=== PATIENT | female | born 1940 | race African-American/Black ===

== ENCOUNTER 2018-03-24 11:27 | Inpatient (IN) | payer OTHER ==
[~2018-03-24] VITALS: Ht 165.1 cm; Wt 78.5 kg
[~2018-03-24 11:27] MED LIST: ATOR20TA65 MT; BUDE6HFA INH; ESCI20TA36 PO; FOLI-43 PO; LOSA25TA12 PO; POTA10TA15 PO; TRAZ-212 PO
[2018-03-24] MEDS ORDERED: METHYLPREDNISOLONE SOD SUCC 125 MG/2 ML VIAL IV STA (12:27)
[2018-03-24] MEDS ORDERED: MAGNESIUM 2 G PREMIX 50 ML IV ONE (12:30)
[2018-03-24] MEDS ORDERED: IPRATROPIUM/ALBUTEROL 0.5-3(2.5)MG/3ML NEB HHN ONE (12:30)
[2018-03-24 13:58] LABS: BASOPHILS % 0.8 % (0.0-2.0); EOSINOPHILS % 1.3 % (0.0-5.0); HEMATOCRIT. 37.2 % (36.0-48.0); HEMOGLOBIN. 11.8 g/dL (12.0-16.0); LYMPHOCYTES % 23.5 % (20.0-50.0); MEAN CORPUSCULAR HEMOGLOBIN 26.5 pg (28.0-32.0); MEAN CORPUSCULAR VOLUME 83.9 fL (81.0-99.0); MONOCYTES % 11.6 % (2.0-8.0); NEUTROPHILS % 62.8 % (40.0-76.0); PLATELET 239 x1000/uL (130-400); RED BLOOD CELL COUNT 4.44 mill/uL (4.2-5.4)
[2018-03-24 14:03] LABS: CHLORIDE 107 mEq/L (98-107)
[2018-03-24] MEDS ORDERED: FUROSEMIDE 40MG/4ML VIAL IVP ONE (14:30)
[2018-03-24] MEDS ORDERED: ENOXAPARIN 80MG/0.8ML SYR SUBCUT ONE ×2 (14:30→16:00)
[2018-03-24] MEDS ORDERED: ASPIRIN 81MG TABLET PO ONE (14:30)
[2018-03-24 15:05] LABS: INR 1.1; PROTHROMBIN TIME 11.1 sec (9.1-11.1)
[2018-03-24] MEDS ORDERED: MEDICATION NOT ON FORMULARY EA (Trazodone Hcl 1 TAB) PO PRN (17:00)
[2018-03-24] MEDS ORDERED: DIPHENHYDRAMINE 50MG/ML VIAL IV PRN (17:00)
[2018-03-24] MEDS ORDERED: CLONIDINE 0.1MG TABLET PO PRN (17:00)
[2018-03-24] MEDS ORDERED: ACETAMINOPHEN 325MG TABLET PO PRN (17:00)
[2018-03-24] MEDS ORDERED: HYDROCODONE/ACETAMINOPHEN 5/325MG TABLET PO PRN (17:00)
[2018-03-24] MEDS ORDERED: GUAIFENESIN 200MG/10ML SUGAR FREE UDC PO PRN (17:00)
[2018-03-24] MEDS ORDERED: DOCUSATE SODIUM 100MG CAPSULE PO PRN (17:00)
[2018-03-24] MEDS ORDERED: ACETAMINOPHEN 650MG SUPP PR PRN (17:00)
[2018-03-24] MEDS ORDERED: MAGNESIUM/ALUMINUM HYDROXIDE/SIMETHICONE 30ML UDC PO PRN (17:00)
[2018-03-24] MEDS ORDERED: ONDANSETRON HCL 4MG/2ML INJ IV PRN (17:00)
[2018-03-24] MEDS ORDERED: IPRATROPIUM/ALBUTEROL 0.5-3(2.5)MG/3ML NEB INH PRN (17:00)
[2018-03-24] MEDS: LORAZEPAM 0.5MG TABLET PO PRN (18:06)
[2018-03-24 18:48] LABS: CLARITY URINE CLEAR (CLEAR); COLOR URINE YELLOW (YELLOW); KETONES URINE NEGATIVE (NEGATIVE); LEUKOCYTE ESTERASE URINE NEGATIVE (NEGATIVE); NITRITE URINE NEGATIVE (NEGATIVE); OCCULT BLOOD URINE NEGATIVE (NEGATIVE); PH URINE 7.5 (4.5-8.0); PROTEIN URINE NEGATIVE (NEGATIVE); SPECIFIC GRAVITY URINE 1.005 (1.005-1.030); UROBILINOGEN URINE 0.2 E.U./dL (0.2-1.0)
[2018-03-24 18:58] LABS: *AMPHETAMINES SCREEN URINE NEGATIVE (NEGATIVE); *BARBITURATES SCREEN URINE NEGATIVE (NEGATIVE); *BENZODIAZEPINES SCREEN URINE NEGATIVE (NEGATIVE); *COCAINE SCREEN URINE NEGATIVE (NEGATIVE); METHADONE URINE SCREEN NEGATIVE (NEGATIVE); OPIATES URINE SCREEN NEGATIVE (NEGATIVE)
[2018-03-24 18:59] LABS: CANNABINOID URINE SCREEN NEGATIVE (NEGATIVE); PHENCYCLIDINE URINE SCREEN NEGATIVE (NEGATIVE)
[2018-03-24 20:00] VITALS: BP_SYST 102; BP_DIAS 70; BP_DIAS 72
[2018-03-24] MEDS ORDERED: NA PHOS,M-B/NA PHOS,DI-BA ENEMA 118ML PR PRN (21:00)
[2018-03-24 22:00] VITALS: BP 110/65
[2018-03-24] MEDS ORDERED: LEVOFLOXACIN 500MG PREMIX 100 ML IV SCH (22:00)
[2018-03-24] MEDS: TRAMADOL 50MG TABLET PO PRN (22:13)
[2018-03-24] MEDS: SILDENAFIL CITRATE 20MG TABLET PO SCH (22:13)
[2018-03-24] MEDS: METHYLPREDNISOLONE SOD SUCC 40 MG/ML VIAL IV SCH (22:13)
[2018-03-24] MEDS: TRAZODONE HCL 50MG TABLET PO PRN (22:14)
[2018-03-24 23:43] LABS: CREATINE KINASE MB FRACTION 4.2 ng/mL (0.5-3.6)
[2018-03-25] VITALS (15 sets, daily range): BP systolic 77–136; BP diastolic 35–83
[2018-03-25] MEDS ORDERED: IPRATROPIUM/ALBUTEROL 0.5-3(2.5)MG/3ML NEB HHN SCH
[2018-03-25] MEDS: IPRATROPIUM/ALBUTEROL 0.5-3(2.5)MG/3ML NEB HHN SCH ×4 (01:39→20:34)
[2018-03-25] MEDS: BUDESONIDE 0.5MG/2ML NEB HHN SCH ×2 (06:00→20:35)
[2018-03-25] MEDS: METHYLPREDNISOLONE SOD SUCC 40 MG/ML VIAL IV SCH ×3 (07:01→23:16)
[2018-03-25] MEDS: SILDENAFIL CITRATE 20MG TABLET PO SCH (07:01)
[2018-03-25] MEDS: TRAMADOL 50MG TABLET PO PRN (07:12)
[2018-03-25 07:44] LABS: BASOPHILS % 0.2 % (0.0-2.0); HEMATOCRIT. 35.5 % (36.0-48.0); HEMOGLOBIN. 11.6 g/dL (12.0-16.0); LYMPHOCYTES % 9.7 % (20.0-50.0); MEAN CORPUSCULAR HEMOGLOBIN 26.7 pg (28.0-32.0); MEAN PLATELET VOLUME 8.8 fl (7.4-10.4); MONOCYTES % 2.7 % (2.0-8.0); NEUTROPHILS % 87.4 % (40.0-76.0); PLATELET 235 x1000/uL (130-400); RED BLOOD CELL COUNT 4.33 mill/uL (4.2-5.4); RED CELL DISTRIBUTION WIDTH 15.8 % (11.6-14.6)
[2018-03-25 08:09] LABS: CHLORIDE 103 mEq/L (98-107)
[2018-03-25 08:18] LABS: CREATINE KINASE MB FRACTION 3.1 ng/mL (0.5-3.6); HDL CHOLESTEROL 70 mg/dL (40-59)
[2018-03-25 08:19] LABS: T4 FREE 1.13 ng/dL (0.76-1.46)
[2018-03-25] MEDS ORDERED: MEDICATION NOT ON FORMULARY EA (Escitalopram Oxalate 1 TAB) PO SCH (09:00)
[2018-03-25] MEDS ORDERED: MEDICATION NOT ON FORMULARY EA (Losartan Potassium 1 TAB) PO SCH (09:00)
[2018-03-25] MEDS ORDERED: FUROSEMIDE 40MG/4ML VIAL IVP SCH (09:00)
[2018-03-25] MEDS ORDERED: MEDICATION NOT ON FORMULARY EA (Folic Acid 1 TAB) PO SCH (09:00)
[2018-03-25] MEDS ORDERED: LOSARTAN POTASSIUM 25 MG TABLET PO SCH (09:00)
[2018-03-25] MEDS ORDERED: RANO500T3 MT (09:54)
[2018-03-25] MEDS: ATORVASTATIN CALCIUM 20MG TABLET PO SCH (10:22)
[2018-03-25] MEDS: FOLIC ACID 1MG TABLET PO SCH (10:22)
[2018-03-25] MEDS: ASPIRIN 81MG EC TABLET PO SCH (10:23)
[2018-03-25] MEDS: LORAZEPAM 0.5MG TABLET PO PRN ×2 (10:24→23:38)
[2018-03-25] MEDS: ENOXAPARIN 40MG/0.4ML SYR SUBCUT SCH (10:24)
[2018-03-25] MEDS: CITALOPRAM HYDROBROMIDE 40MG TABLET PO SCH (10:25)
[2018-03-25 10:45] LABS: LDL CHOLESTEROL 75 mg/dL (5-100)
[2018-03-25 14:46] LABS: BG BASE EXCESS 4.6 mmol/L (-2.0-2.0); BG CARBOXYHEMOGLOBIN 0.7 % (0.5-1.5); BG DEOXYHEMOGLOBIN 4.3 % (0.0-5.0); BG FRACTION INSPIRED OXYGEN 28; BG HCO3 ACT 29.9 mmol/L (22.0-26.0); BG METHEMOGLOBIN 0.1 % (0.0-1.5); BG OXYGEN SATURATION 95.7 % (92.0-98.5); BG OXYHEMOGLOBIN 94.9 % (94.0-97.0); BG PCO2 46.9 mmHg (35.0-45.0); BG PH 7.422 (7.350-7.450); BG PO2 80.9 mmHg (75.0-100.0); BG SAMPLE SITE LEFT BRACHIAL; BG TOTAL HEMOGLOBIN 12.7 g/dL (12.0-18.0); BG VENT MODE NASAL CANNULA
[2018-03-25] MEDS: [UNRECOGNIZED DRUG - OTHER] PO SCH (21:12)
[2018-03-25] MEDS: METRONIDAZOLE 500 MG PREMIX 100 ML IV SCH (21:12)
[2018-03-25] MEDS: LEVOFLOXACIN 250MG PREMIX 50 ML IV SCH (23:16)
[2018-03-26] VITALS (14 sets, daily range): BP systolic 95–138; BP diastolic 51–86
[2018-03-26] MEDS: IPRATROPIUM/ALBUTEROL 0.5-3(2.5)MG/3ML NEB HHN SCH ×7 (00:07→23:38)
[2018-03-26] MEDS: METRONIDAZOLE 500 MG PREMIX 100 ML IV SCH ×3 (04:35→20:53)
[2018-03-26] MEDS: TRAMADOL 50MG TABLET PO PRN (04:35)
[2018-03-26] MEDS: METHYLPREDNISOLONE SOD SUCC 40 MG/ML VIAL IV SCH ×3 (05:28→22:11)
[2018-03-26] MEDS ORDERED: MORPHINE SULFATE 4 MG/ML CPJ (NOT FOR IM USE) IV PRN (08:00)
[2018-03-26 08:05] LABS: HEMATOCRIT. 35.3 % (36.0-48.0); HEMOGLOBIN. 11.2 g/dL (12.0-16.0); MEAN CORPUSCULAR HEMOGLOBIN 26.4 pg (28.0-32.0); MEAN CORPUSCULAR VOLUME 83.4 fL (81.0-99.0); MEAN PLATELET VOLUME 8.9 fl (7.4-10.4); PLATELET 231 x1000/uL (130-400); RED BLOOD CELL COUNT 4.23 mill/uL (4.2-5.4); RED CELL DISTRIBUTION WIDTH 15.8 % (11.6-14.6)
[2018-03-26] MEDS: ATORVASTATIN CALCIUM 20MG TABLET PO SCH (08:26)
[2018-03-26] MEDS: ASPIRIN 81MG EC TABLET PO SCH (08:26)
[2018-03-26] MEDS: ENOXAPARIN 40MG/0.4ML SYR SUBCUT SCH (08:26)
[2018-03-26] MEDS: [UNRECOGNIZED DRUG - OTHER] PO SCH ×2 (08:26→20:53)
[2018-03-26] MEDS: CITALOPRAM HYDROBROMIDE 40MG TABLET PO SCH (08:26)
[2018-03-26] MEDS: FOLIC ACID 1MG TABLET PO SCH (08:26)
[2018-03-26] MEDS: FUROSEMIDE 20MG TABLET PO SCH (08:27)
[2018-03-26] MEDS ORDERED: MORPHINE SULFATE 10 MG/ML CPJ IV PRN ×2 (08:30→17:45)
[2018-03-26 08:49] LABS: CHLORIDE 101 mEq/L (98-107)
[2018-03-26] MEDS: BUDESONIDE 0.5MG/2ML NEB HHN SCH ×2 (09:20→19:49)
[2018-03-26] MEDS ORDERED: LACTULOSE 20G/30ML UDC PO PRN (12:15)
[2018-03-26] MEDS: DOCUSATE SODIUM 100MG CAPSULE PO SCH ×2 (12:27→17:49)
[2018-03-26 14:00] LABS: PLATELET ESTIMATE NORMAL
[2018-03-26] MEDS ORDERED: MORPHINE SULFATE 2 MG/ML CPJ (NOT FOR IM USE) IV PRN (17:45)
[2018-03-26] MEDS ORDERED: MORPHINE SULFATE 10MG/5ML ORAL SOLN UDC PO PRN (18:00)
[2018-03-26] MEDS: LORAZEPAM 0.5MG TABLET PO PRN (22:11)
[2018-03-26] MEDS: LEVOFLOXACIN 250MG PREMIX 50 ML IV SCH (22:11)
[2018-03-27] VITALS (15 sets, daily range): BP systolic 93–136; BP diastolic 44–93
[2018-03-27] MEDS: IPRATROPIUM/ALBUTEROL 0.5-3(2.5)MG/3ML NEB HHN SCH ×5 (03:49→21:27)
[2018-03-27] MEDS: METRONIDAZOLE 500 MG PREMIX 100 ML IV SCH ×3 (04:06→20:48)
[2018-03-27] MEDS: METHYLPREDNISOLONE SOD SUCC 40 MG/ML VIAL IV SCH ×3 (06:19→20:47)
[2018-03-27 07:45] LABS: HEMATOCRIT 33.2 % (36.0-48.0); HEMOGLOBIN 10.8 g/dL (12.0-16.0); MEAN CORPUSCULAR HEMOGLOBIN 26.9 pg (28.0-32.0); MEAN CORPUSCULAR VOLUME 82.6 fL (81.0-99.0); PLATELET 219 x1000/uL (130-400); RED BLOOD CELL COUNT 4.03 mill/uL (4.2-5.4); RED CELL DISTRIBUTION WIDTH 15.7 % (11.6-14.6)
[2018-03-27] MEDS: CITALOPRAM HYDROBROMIDE 40MG TABLET PO SCH (08:07)
[2018-03-27] MEDS: ATORVASTATIN CALCIUM 20MG TABLET PO SCH (08:07)
[2018-03-27] MEDS: DOCUSATE SODIUM 100MG CAPSULE PO SCH ×2 (08:07→17:49)
[2018-03-27] MEDS: FUROSEMIDE 20MG TABLET PO SCH (08:07)
[2018-03-27] MEDS: ASPIRIN 81MG EC TABLET PO SCH (08:07)
[2018-03-27] MEDS: ENOXAPARIN 40MG/0.4ML SYR SUBCUT SCH (08:08)
[2018-03-27] MEDS: FOLIC ACID 1MG TABLET PO SCH (08:08)
[2018-03-27] MEDS: [UNRECOGNIZED DRUG - OTHER] PO SCH ×2 (08:08→20:54)
[2018-03-27] MEDS: BUDESONIDE 0.5MG/2ML NEB HHN SCH ×2 (08:49→21:27)
[2018-03-27] MEDS: LORAZEPAM 0.5MG TABLET PO PRN (20:46)
[2018-03-27] MEDS: TRAMADOL 50MG TABLET PO PRN (20:46)
[2018-03-27] MEDS: LEVOFLOXACIN 250MG PREMIX 50 ML IV SCH (20:48)
[2018-03-28] VITALS (12 sets, daily range): BP systolic 108–188; BP diastolic 52–75
[2018-03-28] MEDS: IPRATROPIUM/ALBUTEROL 0.5-3(2.5)MG/3ML NEB HHN SCH ×6 (01:33→23:50)
[2018-03-28] MEDS: METRONIDAZOLE 500 MG PREMIX 100 ML IV SCH ×2 (04:36→13:38)
[2018-03-28] MEDS: METHYLPREDNISOLONE SOD SUCC 40 MG/ML VIAL IV SCH ×3 (05:33→21:48)
[2018-03-28] MEDS: ASPIRIN 81MG EC TABLET PO SCH (07:49)
[2018-03-28] MEDS: ATORVASTATIN CALCIUM 20MG TABLET PO SCH (07:49)
[2018-03-28] MEDS: CITALOPRAM HYDROBROMIDE 40MG TABLET PO SCH (07:49)
[2018-03-28] MEDS: FUROSEMIDE 20MG TABLET PO SCH (07:49)
[2018-03-28] MEDS: FOLIC ACID 1MG TABLET PO SCH (07:49)
[2018-03-28] MEDS: DOCUSATE SODIUM 100MG CAPSULE PO SCH ×2 (07:49→17:00)
[2018-03-28] MEDS: ENOXAPARIN 40MG/0.4ML SYR SUBCUT SCH (07:50)
[2018-03-28] MEDS: [UNRECOGNIZED DRUG - OTHER] PO SCH ×2 (07:50→21:55)
[2018-03-28] MEDS ORDERED: VERAPAMIL HCL 2.5 MG/1 ML 2ML VIAL IV NR (12:15)
[2018-03-28] MEDS ORDERED: ADENOSINE 3 MG/ML 2ML VIAL IV NR (12:30)
[2018-03-28] MEDS ORDERED: DILTIAZEM HCL 5MG/ML 5ML VIAL IV NR (13:15)
[2018-03-28] MEDS: DILTIAZEM HCL 125 MG in DEXT 5% WATER 100 ML IV SCH (14:58)
[2018-03-28] MEDS: LEVOFLOXACIN 250MG TABLET PO SCH (21:44)
[2018-03-28] MEDS: METRONIDAZOLE 500MG TABLET PO SCH (21:48)
[2018-03-29] VITALS (11 sets, daily range): BP systolic 101–134; BP diastolic 50–79
[2018-03-29] MEDS: LORAZEPAM 0.5MG TABLET PO PRN
[2018-03-29] MEDS: DILTIAZEM HCL 125 MG in DEXT 5% WATER 100 ML IV SCH ×2 (00:06→09:50)
[2018-03-29] MEDS: IPRATROPIUM/ALBUTEROL 0.5-3(2.5)MG/3ML NEB HHN SCH ×4 (04:03→17:01)
[2018-03-29] MEDS: METHYLPREDNISOLONE SOD SUCC 40 MG/ML VIAL IV SCH ×3 (06:09→20:57)
[2018-03-29] MEDS: METRONIDAZOLE 500MG TABLET PO SCH ×3 (06:09→20:51)
[2018-03-29] MEDS: FOLIC ACID 1MG TABLET PO SCH (08:34)
[2018-03-29] MEDS: ATORVASTATIN CALCIUM 20MG TABLET PO SCH (08:34)
[2018-03-29] MEDS: ASPIRIN 81MG EC TABLET PO SCH (08:34)
[2018-03-29] MEDS: CITALOPRAM HYDROBROMIDE 40MG TABLET PO SCH (08:34)
[2018-03-29] MEDS: FUROSEMIDE 20MG TABLET PO SCH (08:34)
[2018-03-29] MEDS: [UNRECOGNIZED DRUG - OTHER] PO SCH ×2 (08:35→20:57)
[2018-03-29] MEDS: DOCUSATE SODIUM 100MG CAPSULE PO SCH ×2 (08:35→16:39)
[2018-03-29] MEDS: ENOXAPARIN 40MG/0.4ML SYR SUBCUT SCH (08:36)
[2018-03-29] MEDS: DILTIAZEM HCL 30MG TABLET PO SCH ×2 (13:33→20:51)
[2018-03-29 14:27] LABS: HEMATOCRIT 36.8 % (36.0-48.0); HEMOGLOBIN 11.8 g/dL (12.0-16.0); MEAN CORPUSCULAR HEMOGLOBIN 26.5 pg (28.0-32.0); MEAN CORPUSCULAR VOLUME 82.6 fL (81.0-99.0); PLATELET 247 x1000/uL (130-400); RED BLOOD CELL COUNT 4.46 mill/uL (4.2-5.4); RED CELL DISTRIBUTION WIDTH 15.7 % (11.6-14.6)
[2018-03-29 14:50] LABS: CHLORIDE 101 mEq/L (98-107)
[2018-03-29] MEDS: LEVOFLOXACIN 250MG TABLET PO SCH (20:51)
[2018-03-29] MEDS: TRAMADOL 50MG TABLET PO PRN (20:52)
[2018-03-29] MEDS: TRAZODONE HCL 50MG TABLET PO PRN (23:02)
[2018-03-30] VITALS (8 sets, daily range): BP systolic 104–141; BP diastolic 58–109
[2018-03-30] MEDS: IPRATROPIUM/ALBUTEROL 0.5-3(2.5)MG/3ML NEB HHN SCH ×6 (00:20→21:14)
[2018-03-30] MEDS: METHYLPREDNISOLONE SOD SUCC 40 MG/ML VIAL IV SCH ×2 (06:30→13:23)
[2018-03-30] MEDS: DILTIAZEM HCL 30MG TABLET PO SCH ×3 (06:30→20:43)
[2018-03-30] MEDS: METRONIDAZOLE 500MG TABLET PO SCH ×3 (06:34→20:44)
[2018-03-30] MEDS: FUROSEMIDE 20MG TABLET PO SCH (08:21)
[2018-03-30] MEDS: ATORVASTATIN CALCIUM 20MG TABLET PO SCH (08:21)
[2018-03-30] MEDS: ASPIRIN 81MG EC TABLET PO SCH (08:21)
[2018-03-30] MEDS: CITALOPRAM HYDROBROMIDE 40MG TABLET PO SCH (08:21)
[2018-03-30] MEDS: [UNRECOGNIZED DRUG - OTHER] PO SCH ×2 (08:21→22:46)
[2018-03-30] MEDS: FOLIC ACID 1MG TABLET PO SCH (08:21)
[2018-03-30] MEDS: DOCUSATE SODIUM 100MG CAPSULE PO SCH ×2 (08:21→16:22)
[2018-03-30] MEDS: ENOXAPARIN 40MG/0.4ML SYR SUBCUT SCH (08:21)
[2018-03-30] MEDS ORDERED: LACTULOSE 20G/30ML UDC PO PRN (12:00)
[2018-03-30 13:01] LABS: CHLORIDE 102 mEq/L (98-107)
[2018-03-30] MEDS: LORAZEPAM 1MG TABLET PO PRN ×2 (16:23→20:44)
[2018-03-30] MEDS: TRAZODONE HCL 50MG TABLET PO PRN (20:43)
[2018-03-30] MEDS: LEVOFLOXACIN 250MG TABLET PO SCH (20:44)
[2018-03-31] VITALS (24 sets, daily range): BP systolic 85–122; BP diastolic 38–79
[2018-03-31] MEDS: IPRATROPIUM/ALBUTEROL 0.5-3(2.5)MG/3ML NEB HHN SCH ×3 (01:15→08:46)
[2018-03-31 06:46] LABS: BASOPHILS % 0.1 % (0.0-2.0); HEMATOCRIT. 35.7 % (36.0-48.0); HEMOGLOBIN. 11.3 g/dL (12.0-16.0); LYMPHOCYTES % 9.9 % (20.0-50.0); MEAN CORPUSCULAR VOLUME 82.3 fL (81.0-99.0); MEAN PLATELET VOLUME 8.8 fl (7.4-10.4); MONOCYTES % 10.8 % (2.0-8.0); NEUTROPHILS % 79.2 % (40.0-76.0); PLATELET 245 x1000/uL (130-400); RED BLOOD CELL COUNT 4.33 mill/uL (4.2-5.4); RED CELL DISTRIBUTION WIDTH 15.3 % (11.6-14.6)
[2018-03-31] MEDS: METRONIDAZOLE 500MG TABLET PO SCH ×3 (07:06→21:04)
[2018-03-31] MEDS: DILTIAZEM HCL 30MG TABLET PO SCH (07:06)
[2018-03-31 07:51] LABS: CHLORIDE 103 mEq/L (98-107)
[2018-03-31] MEDS: ATORVASTATIN CALCIUM 20MG TABLET PO SCH ×2 (09:00→21:04)
[2018-03-31] MEDS ORDERED: MORPHINE SULFATE 10 MG/ML CPJ IV PRN (09:15)
[2018-03-31] MEDS: [UNRECOGNIZED DRUG - OTHER] PO SCH ×2 (09:16→21:04)
[2018-03-31] MEDS: ENOXAPARIN 40MG/0.4ML SYR SUBCUT SCH (09:16)
[2018-03-31] MEDS: DOCUSATE SODIUM 100MG CAPSULE PO SCH ×2 (09:17→17:45)
[2018-03-31] MEDS: METHYLPREDNISOLONE SOD SUCC 40 MG/ML VIAL IV SCH ×2 (09:17→17:45)
[2018-03-31] MEDS: FOLIC ACID 1MG TABLET PO SCH (09:18)
[2018-03-31] MEDS: ASPIRIN 81MG EC TABLET PO SCH (09:18)
[2018-03-31] MEDS: CITALOPRAM HYDROBROMIDE 40MG TABLET PO SCH (09:18)
[2018-03-31] MEDS: FUROSEMIDE 20MG TABLET PO SCH (09:19)
[2018-03-31] MEDS ORDERED: DILTIAZEM HCL 5MG/ML 5ML VIAL IV NR (10:30)
[2018-03-31] MEDS: DILTIAZEM HCL 125 MG in DEXT 5% WATER 100 ML IV SCH ×2 (10:45→22:00)
[2018-03-31] MEDS ORDERED: ENOXAPARIN 40MG/0.4ML SYR SUBCUT NR (11:41)
[2018-03-31] MEDS ORDERED: MORPHINE SULFATE 10MG/5ML ORAL SOLN UDC PO PRN (14:00)
[2018-03-31] MEDS: LEVOFLOXACIN 250MG TABLET PO SCH (21:04)
[2018-03-31] MEDS: ENOXAPARIN 80MG/0.8ML SYR SUBCUT SCH (21:05)
[2018-03-31] MEDS: LORAZEPAM 1MG TABLET PO PRN (21:51)
[2018-04-01] VITALS (16 sets, daily range): BP systolic 93–143; BP diastolic 36–94
[2018-04-01] MEDS: METRONIDAZOLE 500MG TABLET PO SCH ×3 (05:06→21:23)
[2018-04-01 05:49] LABS: CHLORIDE 103 mEq/L (98-107)
[2018-04-01 06:15] LABS: HEMATOCRIT. 35.3 % (36.0-48.0); HEMOGLOBIN. 11.3 g/dL (12.0-16.0); MEAN CORPUSCULAR HEMOGLOBIN 26.5 pg (28.0-32.0); MEAN CORPUSCULAR VOLUME 82.9 fL (81.0-99.0); MEAN PLATELET VOLUME 8.6 fl (7.4-10.4); PLATELET 236 x1000/uL (130-400); RED BLOOD CELL COUNT 4.25 mill/uL (4.2-5.4); RED CELL DISTRIBUTION WIDTH 15.4 % (11.6-14.6)
[2018-04-01] MEDS: DILTIAZEM HCL 125 MG in DEXT 5% WATER 100 ML IV SCH ×2 (08:33→10:44)
[2018-04-01] MEDS: METHYLPREDNISOLONE SOD SUCC 40 MG/ML VIAL IV SCH ×2 (08:45→17:07)
[2018-04-01] MEDS: ENOXAPARIN 80MG/0.8ML SYR SUBCUT SCH ×2 (08:45→21:18)
[2018-04-01] MEDS: DOCUSATE SODIUM 100MG CAPSULE PO SCH ×2 (09:44→17:05)
[2018-04-01] MEDS: CITALOPRAM HYDROBROMIDE 40MG TABLET PO SCH (09:44)
[2018-04-01] MEDS: FOLIC ACID 1MG TABLET PO SCH (09:44)
[2018-04-01] MEDS: ASPIRIN 81MG EC TABLET PO SCH (09:44)
[2018-04-01] MEDS: FUROSEMIDE 20MG TABLET PO SCH (09:45)
[2018-04-01] MEDS: [UNRECOGNIZED DRUG - OTHER] PO SCH ×2 (09:45→21:16)
[2018-04-01 09:59] LABS: PLATELET ESTIMATE NORMAL
[2018-04-01] MEDS: ATORVASTATIN CALCIUM 20MG TABLET PO SCH (21:15)
[2018-04-01] MEDS: TRAZODONE HCL 50MG TABLET PO PRN (21:16)
[2018-04-01] MEDS: LEVOFLOXACIN 250MG TABLET PO SCH (21:23)
[2018-04-01] MEDS: LORAZEPAM 1MG TABLET PO PRN (21:23)
[2018-04-02] VITALS (11 sets, daily range): BP systolic 94–140; BP diastolic 49–75
[2018-04-02] MEDS: DILTIAZEM HCL 125 MG in DEXT 5% WATER 100 ML IV SCH (00:04)
[2018-04-02] MEDS: METRONIDAZOLE 500MG TABLET PO SCH (05:28)
[2018-04-02 06:27] LABS: HEMOGLOBIN 11.9 g/dL (12.0-16.0); MEAN CORPUSCULAR HEMOGLOBIN 26.8 pg (28.0-32.0); PLATELET 237 x1000/uL (130-400); RED BLOOD CELL COUNT 4.46 mill/uL (4.2-5.4); RED CELL DISTRIBUTION WIDTH 15.6 % (11.6-14.6)
[2018-04-02 06:51] LABS: CHLORIDE 103 mEq/L (98-107)
[2018-04-02] MEDS: METHYLPREDNISOLONE SOD SUCC 40 MG/ML VIAL IV SCH (08:54)
[2018-04-02] MEDS ORDERED: LORAZEPAM 1MG TABLET PO PRN (11:30)
[2018-04-02] MEDS ORDERED: DEXT 5%/0.45% NACL 1000ML 1,000 ML IV SCH (11:45)
[2018-04-02] MEDS ORDERED: FAMOTIDINE 20MG/2ML VIAL IV SCH (11:45)
[2018-04-02] MEDS: FOLIC ACID 1MG TABLET PO SCH (15:04)
[2018-04-02] MEDS: ASPIRIN 81MG EC TABLET PO SCH (15:04)
[2018-04-02] MEDS: CITALOPRAM HYDROBROMIDE 40MG TABLET PO SCH (15:04)
[2018-04-02] MEDS: FUROSEMIDE 20MG TABLET PO SCH (15:04)
[2018-04-02] MEDS: DOCUSATE SODIUM 100MG CAPSULE PO SCH (15:04)
[2018-04-02] MEDS: [UNRECOGNIZED DRUG - OTHER] PO SCH (15:05)
[2018-04-03] MEDS ORDERED: METHYLPREDNISOLONE SOD SUCC 40 MG/ML VIAL IV SCH (09:00)
== END 2018-04-02 15:46 | disposition home or self-care (01) | DRG 291 ==
LOC: ER 11:36 → 3WST 15:11 → EDBEDREQ 15:27 → EDBEDREQSVC 15:27 → ENRESERV 16:53
PROVIDERS: ADMIT Internal Medicine; ATTEND Internal Medicine
DX: I11.0 Hypertensive heart disease with heart failure (principal); J96.20 Acute and chronic respiratory failure, unspecified whether with hypoxia or hypercapnia; J44.1 Chronic obstructive pulmonary disease with (acute) exacerbation; I31.3 Pericardial effusion (noninflammatory); I47.1 Supraventricular tachycardia; I48.92 Unspecified atrial flutter; R65.10 Systemic inflammatory response syndrome (SIRS) of non-infectious origin without acute organ dysfunction; I50.43 Acute on chronic combined systolic (congestive) and diastolic (congestive) heart failure; I42.0 Dilated cardiomyopathy; I27.20 Pulmonary hypertension, unspecified; K57.30 Diverticulosis of large intestine without perforation or abscess without bleeding; D64.9 Anemia, unspecified; E78.5 Hyperlipidemia, unspecified; I35.1 Nonrheumatic aortic (valve) insufficiency; F41.9 Anxiety disorder, unspecified; E66.9 Obesity, unspecified; I44.7 Left bundle-branch block, unspecified; I48.91 Unspecified atrial fibrillation; M19.90 Unspecified osteoarthritis, unspecified site; N20.0 Calculus of kidney; Z87.442 Personal history of urinary calculi; Z87.891 Personal history of nicotine dependence; Z90.710 Acquired absence of both cervix and uterus; Z68.28 Body mass index [BMI] 28.0-28.9, adult; Z90.49 Acquired absence of other specified parts of digestive tract; Z99.81 Dependence on supplemental oxygen; Z88.0 Allergy status to penicillin; Z88.5 Allergy status to narcotic agent
CPT/HCPCS: 36415; 36600; 71045; 71275; 74018; 74176; 76700; 80048; 80061; 80305; 82375; 82553; 82805; 82962; 83605; 83735; 83880; 84439; 84443; 84484; 85027; 93005; 93306; 93970; 94640; 96365; 96366; 96375; 97116; 97162; 99285; J0153; J1200; J1650; J1940; J1956; J2270; J2920; J2930; J3475; J3490; J7050; J7060; J7620; J7626

== ENCOUNTER 2018-10-11 14:31 | Inpatient (IN) | payer OTHER ==
[~2018-10-11] VITALS: Ht 167.6 cm; Wt 84.8 kg
[~2018-10-11 14:31] MED LIST changes: -LOSA25TA12 PO; +LOSA25TA26 PO; +RANO500T3 MT; -TRAZ-212 PO; +TRAZ-251 PO
[2018-10-11] MEDS ORDERED: ASPIRIN 81MG TABLET PO ONE (15:15)
[2018-10-11 15:40] LABS: BASOPHILS % 0.6 % (0.0-2.0); EOSINOPHILS % 0.7 % (0.0-5.0); LYMPHOCYTES % 21.3 % (20.0-50.0); MEAN CORPUSCULAR VOLUME 69.6 fL (81.0-99.0); MEAN PLATELET VOLUME 7.3 fl (7.4-10.4); MONOCYTES % 10.1 % (2.0-8.0); NEUTROPHILS % 67.3 % (40.0-76.0); PLATELET 314 x1000/uL (130-400); RED BLOOD CELL COUNT 2.85 mill/uL (4.2-5.4); RED CELL DISTRIBUTION WIDTH 19.8 % (11.6-14.6)
[2018-10-11 15:41] LABS: CHLORIDE 105 mEq/L (98-107)
[2018-10-11 15:45] LABS: HEMATOCRIT. 19.9 % (36.0-48.0); INR 1.2; PARTIAL THROMBOPLASTIN TIME 25.2 sec (23.4-31.0)
[2018-10-11] MEDS ORDERED: ALBUTEROL (0.083%) 2.5MG/3ML NEB HHN ONE (15:45)
[2018-10-11 16:03] LABS: PLATELET ESTIMATE NORMAL
[2018-10-11 18:04] LABS: CLARITY URINE CLEAR (CLEAR); COLOR URINE YELLOW (YELLOW); KETONES URINE TRACE (NEGATIVE); LEUKOCYTE ESTERASE URINE TRACE (NEGATIVE); NITRITE URINE NEGATIVE (NEGATIVE); OCCULT BLOOD URINE NEGATIVE (NEGATIVE); PH URINE 6.5 (4.5-8.0); PROTEIN URINE NEGATIVE (NEGATIVE); SPECIFIC GRAVITY URINE 1.018 (1.005-1.030); UROBILINOGEN URINE 0.2 E.U./dL (0.2-1.0)
[2018-10-12] VITALS (7 sets, daily range): BP systolic 102–123; BP diastolic 49–84
[2018-10-12] MEDS ORDERED: ACETAMINOPHEN 325MG TABLET PO PRN (01:45)
[2018-10-12] MEDS ORDERED: FUROSEMIDE 40MG/4ML VIAL IVP SCH (01:56)
[2018-10-12] MEDS ORDERED: METHYLPREDNISOLONE SOD SUCC 40 MG/ML VIAL IV SCH (01:56)
[2018-10-12] MEDS ORDERED: LORA1TAB PO (02:48)
[2018-10-12] MEDS: TEMAZEPAM 15MG CAPSULE PO PRN ×2 (02:51→20:49)
[2018-10-12] MEDS: IPRATROPIUM/ALBUTEROL 0.5-3(2.5)MG/3ML NEB HHN SCH ×5 (04:14→21:05)
[2018-10-12] MEDS: PANTOPRAZOLE 40MG DR TABLET PO SCH (05:45)
[2018-10-12 06:58] LABS: HEMATOCRIT. 25.7 % (36.0-48.0); HEMOGLOBIN. 8.1 g/dL (12.0-16.0); MEAN CORPUSCULAR HEMOGLOBIN 23.5 pg (28.0-32.0); MEAN CORPUSCULAR VOLUME 74.4 fL (81.0-99.0); MEAN PLATELET VOLUME 7.8 fl (7.4-10.4); PLATELET 283 x1000/uL (130-400); RED BLOOD CELL COUNT 3.45 mill/uL (4.2-5.4); RED CELL DISTRIBUTION WIDTH 22.1 % (11.6-14.6)
[2018-10-12 07:24] LABS: VITAMIN B12 SERUM 1974 pg/mL (211-911)
[2018-10-12] MEDS ORDERED: MEMA10TA19 MT (08:21)
[2018-10-12] MEDS ORDERED: SACU1TAB7 MT (08:21)
[2018-10-12] MEDS ORDERED: GABA300S PO (08:21)
[2018-10-12] MEDS ORDERED: FURO80TA3 PO (08:21)
[2018-10-12] MEDS ORDERED: ALLO100T MT (08:21)
[2018-10-12] MEDS ORDERED: ALBU90AE INH (08:21)
[2018-10-12] MEDS ORDERED: DOCU-272 PO (08:21)
[2018-10-12] MEDS ORDERED: PANT40TA4 MT (08:21)
[2018-10-12] MEDS ORDERED: MIRT15TA6 PO (08:21)
[2018-10-12] MEDS: METHYLPREDNISOLONE SOD SUCC 40 MG/ML VIAL IV SCH (10:07)
[2018-10-12] MEDS: FUROSEMIDE 40MG/4ML VIAL IVP SCH ×2 (10:07→20:47)
[2018-10-12] MEDS: FOLIC ACID 1MG TABLET PO SCH (10:08)
[2018-10-12] MEDS: RANOLAZINE 500 MG TAB.SR.12H PO SCH ×2 (10:08→20:47)
[2018-10-12] MEDS: POTASSIUM CHLORIDE 20MEQ TABLET SR PO SCH ×2 (10:08→18:48)
[2018-10-12] MEDS: ALLOPURINOL 100 MG TABLET PO SCH (10:08)
[2018-10-12] MEDS: MEMANTINE HCL 10MG TABLET PO SCH (10:09)
[2018-10-12 13:21] LABS: PLATELET ESTIMATE NORMAL
[2018-10-12] MEDS: GABAPENTIN 300MG CAPSULE PO SCH (18:00)
[2018-10-12 18:05] LABS: HEMATOCRIT 26.2 % (36.0-48.0); HEMOGLOBIN 8.3 g/dL (12.0-16.0)
[2018-10-12] MEDS: ATORVASTATIN CALCIUM 20MG TABLET PO SCH (20:47)
[2018-10-12] MEDS: MIRTAZAPINE 15MG TABLET PO SCH (20:48)
[2018-10-12 23:30] LABS: HEMATOCRIT 23.6 % (36.0-48.0); HEMOGLOBIN 7.6 g/dL (12.0-16.0)
[2018-10-13] VITALS (11 sets, daily range): BP systolic 110–137; BP diastolic 52–90
[2018-10-13] MEDS: PANTOPRAZOLE 40MG DR TABLET PO SCH (06:09)
[2018-10-13 06:40] LABS: HEMATOCRIT 23.5 % (36.0-48.0); HEMOGLOBIN 7.4 g/dL (12.0-16.0); MEAN CORPUSCULAR HEMOGLOBIN 23.2 pg (28.0-32.0); MEAN CORPUSCULAR VOLUME 73.9 fL (81.0-99.0); PLATELET 264 x1000/uL (130-400); RED BLOOD CELL COUNT 3.18 mill/uL (4.2-5.4); RED CELL DISTRIBUTION WIDTH 22.4 % (11.6-14.6)
[2018-10-13] MEDS: POTASSIUM CHLORIDE 20MEQ TABLET SR PO SCH ×2 (09:18→17:40)
[2018-10-13] MEDS: MEMANTINE HCL 10MG TABLET PO SCH (09:18)
[2018-10-13] MEDS: ALLOPURINOL 100 MG TABLET PO SCH (09:18)
[2018-10-13] MEDS: METHYLPREDNISOLONE SOD SUCC 40 MG/ML VIAL IV SCH (09:18)
[2018-10-13] MEDS: RANOLAZINE 500 MG TAB.SR.12H PO SCH ×2 (09:18→20:31)
[2018-10-13] MEDS: FUROSEMIDE 40MG/4ML VIAL IVP SCH ×2 (09:18→20:31)
[2018-10-13] MEDS: FOLIC ACID 1MG TABLET PO SCH (09:18)
[2018-10-13] MEDS: IPRATROPIUM/ALBUTEROL 0.5-3(2.5)MG/3ML NEB HHN SCH ×4 (09:53→21:35)
[2018-10-13 16:58] LABS: BG BASE EXCESS 3.3 mmol/L (-2.0-2.0); BG CARBOXYHEMOGLOBIN 0.4 % (0.5-1.5); BG DEOXYHEMOGLOBIN 3.4 % (0.0-5.0); BG FRACTION INSPIRED OXYGEN 32; BG HCO3 ACT 27.4 mmol/L (22.0-26.0); BG METHEMOGLOBIN 0.2 % (0.0-1.5); BG OXYGEN SATURATION 96.6 % (92.0-98.5); BG PCO2 39.9 mmHg (35.0-45.0); BG PH 7.455 (7.350-7.450); BG PO2 90.2 mmHg (75.0-100.0); BG SAMPLE SITE LEFT BRACHIAL; BG TOTAL HEMOGLOBIN 8.5 g/dL (12.0-18.0); BG VENT MODE NASAL CANNULA
[2018-10-13] MEDS: GABAPENTIN 300MG CAPSULE PO SCH (17:40)
[2018-10-13] MEDS ORDERED: LEVOFLOXACIN 500MG PREMIX 100 ML IV SCH (18:00)
[2018-10-13] MEDS: MIRTAZAPINE 15MG TABLET PO SCH (20:31)
[2018-10-13] MEDS: ATORVASTATIN CALCIUM 20MG TABLET PO SCH (20:31)
[2018-10-13] MEDS: TEMAZEPAM 15MG CAPSULE PO PRN (22:54)
[2018-10-13 23:49] LABS: HEMATOCRIT 27.6 % (36.0-48.0); HEMOGLOBIN 9.1 g/dL (12.0-16.0)
[2018-10-14] VITALS (14 sets, daily range): BP systolic 118–159; BP diastolic 59–93
[2018-10-14] MEDS: IPRATROPIUM/ALBUTEROL 0.5-3(2.5)MG/3ML NEB HHN SCH ×5 (04:20→20:29)
[2018-10-14 06:42] LABS: HEMATOCRIT. 27.4 % (36.0-48.0); HEMOGLOBIN. 8.7 g/dL (12.0-16.0); MEAN CORPUSCULAR HEMOGLOBIN 23.9 pg (28.0-32.0); MEAN CORPUSCULAR VOLUME 75.3 fL (81.0-99.0); MEAN PLATELET VOLUME 7.6 fl (7.4-10.4); PLATELET 268 x1000/uL (130-400); RED BLOOD CELL COUNT 3.63 mill/uL (4.2-5.4); RED CELL DISTRIBUTION WIDTH 23.1 % (11.6-14.6)
[2018-10-14 07:13] LABS: FOLIC ACID (FOLATE) SERUM >20 ng/mL ng/mL (>5.38)
[2018-10-14] MEDS: FUROSEMIDE 40MG/4ML VIAL IVP SCH ×2 (09:12→20:35)
[2018-10-14] MEDS: METHYLPREDNISOLONE SOD SUCC 40 MG/ML VIAL IV SCH (09:12)
[2018-10-14] MEDS: MEMANTINE HCL 10MG TABLET PO SCH (09:12)
[2018-10-14] MEDS: POTASSIUM CHLORIDE 20MEQ TABLET SR PO SCH ×2 (09:13→18:17)
[2018-10-14] MEDS: ALLOPURINOL 100 MG TABLET PO SCH (09:13)
[2018-10-14] MEDS: FOLIC ACID 1MG TABLET PO SCH (09:13)
[2018-10-14] MEDS: RANOLAZINE 500 MG TAB.SR.12H PO SCH ×2 (09:13→20:35)
[2018-10-14] MEDS: PANTOPRAZOLE 40MG DR TABLET PO SCH (09:19)
[2018-10-14 10:52] LABS: CLARITY URINE CLEAR (CLEAR); COLOR URINE YELLOW (YELLOW); KETONES URINE NEGATIVE (NEGATIVE); LEUKOCYTE ESTERASE URINE NEGATIVE (NEGATIVE); NITRITE URINE NEGATIVE (NEGATIVE); OCCULT BLOOD URINE NEGATIVE (NEGATIVE); PROTEIN URINE NEGATIVE (NEGATIVE); SPECIFIC GRAVITY URINE 1.008 (1.005-1.030); UROBILINOGEN URINE 0.2 E.U./dL (0.2-1.0)
[2018-10-14 11:09] LABS: PLATELET ESTIMATE NORMAL
[2018-10-14] MEDS ORDERED: SODIUM BICARBONATE 4% (2.4MEQ) 5ML VIAL IV ONE (12:50)
[2018-10-14] MEDS ORDERED: LIDOCAINE HCL 1% 20ML VIAL (Pyxis) INJ ONE (12:50)
[2018-10-14] MEDS ORDERED: BARIUM SULFATE(VOLUMEN) 450 ML ORAL.SUSP ONE (14:00)
[2018-10-14] MEDS ORDERED: IOHEXOL-350 100 ML BOTTLE ONE (15:18)
[2018-10-14] MEDS: SACUBITRIL/VALSARTAN 49MG/51MG TABLET PO SCH ×2 (15:42→20:44)
[2018-10-14] MEDS: GABAPENTIN 300MG CAPSULE PO SCH (18:17)
[2018-10-14] MEDS: LEVOFLOXACIN 250MG PREMIX 50 ML IV SCH (18:18)
[2018-10-14 19:00] LABS: HEMATOCRIT 29.8 % (36.0-48.0); HEMOGLOBIN 9.3 g/dL (12.0-16.0)
[2018-10-14] MEDS: ATORVASTATIN CALCIUM 20MG TABLET PO SCH (20:36)
[2018-10-14] MEDS: MIRTAZAPINE 15MG TABLET PO SCH (20:36)
[2018-10-14] MEDS: CARVEDILOL 3.125 MG TABLET PO SCH (20:44)
[2018-10-14] MEDS: TEMAZEPAM 15MG CAPSULE PO PRN (22:54)
[2018-10-15] VITALS (10 sets, daily range): BP systolic 97–145; BP diastolic 53–85
[2018-10-15] MEDS: IPRATROPIUM/ALBUTEROL 0.5-3(2.5)MG/3ML NEB HHN SCH ×6 (00:28→20:08)
[2018-10-15 06:34] LABS: BASOPHILS % 0.3 % (0.0-2.0); EOSINOPHILS % 0.2 % (0.0-5.0); HEMATOCRIT. 29.3 % (36.0-48.0); HEMOGLOBIN. 9.2 g/dL (12.0-16.0); LYMPHOCYTES % 10.9 % (20.0-50.0); MEAN CORPUSCULAR VOLUME 76.6 fL (81.0-99.0); MEAN PLATELET VOLUME 7.8 fl (7.4-10.4); MONOCYTES % 9.8 % (2.0-8.0); NEUTROPHILS % 78.8 % (40.0-76.0); PLATELET 249 x1000/uL (130-400); RED BLOOD CELL COUNT 3.82 mill/uL (4.2-5.4); RED CELL DISTRIBUTION WIDTH 23.4 % (11.6-14.6)
[2018-10-15 06:46] LABS: CHLORIDE 105 mEq/L (98-107)
[2018-10-15] MEDS: PANTOPRAZOLE 40MG DR TABLET PO SCH (07:30)
[2018-10-15] MEDS: POTASSIUM CHLORIDE 20MEQ TABLET SR PO SCH ×2 (09:00→18:28)
[2018-10-15] MEDS: FUROSEMIDE 40MG/4ML VIAL IVP SCH ×2 (09:00→21:15)
[2018-10-15] MEDS: FOLIC ACID 1MG TABLET PO SCH (09:00)
[2018-10-15] MEDS: CARVEDILOL 3.125 MG TABLET PO SCH ×2 (09:00→21:20)
[2018-10-15] MEDS: SACUBITRIL/VALSARTAN 49MG/51MG TABLET PO SCH ×2 (09:00→21:21)
[2018-10-15] MEDS: MEMANTINE HCL 10MG TABLET PO SCH (09:00)
[2018-10-15] MEDS: RANOLAZINE 500 MG TAB.SR.12H PO SCH ×2 (09:00→21:15)
[2018-10-15] MEDS: ALLOPURINOL 100 MG TABLET PO SCH (09:00)
[2018-10-15] MEDS: METHYLPREDNISOLONE SOD SUCC 40 MG/ML VIAL IV SCH (09:09)
[2018-10-15] MEDS ORDERED: MORPHINE SULFATE 2 MG/ML CPJ (NOT FOR IM USE) IV PRN (15:15)
[2018-10-15] MEDS ORDERED: SIMETHICONE 40 MG/0.6 ML 30ML ONE (15:21)
[2018-10-15] MEDS: LEVOFLOXACIN 250MG PREMIX 50 ML IV SCH (18:28)
[2018-10-15] MEDS: GABAPENTIN 300MG CAPSULE PO SCH (18:28)
[2018-10-15] MEDS: ATORVASTATIN CALCIUM 20MG TABLET PO SCH (21:15)
[2018-10-15] MEDS: MIRTAZAPINE 15MG TABLET PO SCH (21:15)
[2018-10-16] VITALS (9 sets, daily range): BP systolic 98–131; BP diastolic 52–80
[2018-10-16] MEDS: IPRATROPIUM/ALBUTEROL 0.5-3(2.5)MG/3ML NEB HHN SCH ×6 (00:39→20:36)
[2018-10-16 07:20] LABS: HEMATOCRIT 29.3 % (36.0-48.0); HEMOGLOBIN 9.2 g/dL (12.0-16.0); MEAN CORPUSCULAR HEMOGLOBIN 23.9 pg (28.0-32.0); MEAN CORPUSCULAR VOLUME 76.1 fL (81.0-99.0); PLATELET 249 x1000/uL (130-400); RED BLOOD CELL COUNT 3.85 mill/uL (4.2-5.4); RED CELL DISTRIBUTION WIDTH 24.6 % (11.6-14.6)
[2018-10-16] MEDS: MEMANTINE HCL 10MG TABLET PO SCH (08:50)
[2018-10-16] MEDS: CARVEDILOL 3.125 MG TABLET PO SCH ×2 (08:50→21:15)
[2018-10-16] MEDS: POTASSIUM CHLORIDE 20MEQ TABLET SR PO SCH ×2 (08:50→18:46)
[2018-10-16] MEDS: METHYLPREDNISOLONE SOD SUCC 40 MG/ML VIAL IV SCH (08:50)
[2018-10-16] MEDS: FUROSEMIDE 40MG/4ML VIAL IVP SCH ×2 (08:51→21:13)
[2018-10-16] MEDS: FOLIC ACID 1MG TABLET PO SCH (08:51)
[2018-10-16] MEDS: ALLOPURINOL 100 MG TABLET PO SCH (08:51)
[2018-10-16] MEDS: RANOLAZINE 500 MG TAB.SR.12H PO SCH ×2 (08:51→21:16)
[2018-10-16] MEDS: SACUBITRIL/VALSARTAN 49MG/51MG TABLET PO SCH ×2 (09:00→21:00)
[2018-10-16] MEDS: PANTOPRAZOLE 40MG DR TABLET PO SCH (09:07)
[2018-10-16] MEDS: LORAZEPAM 2MG/ML CPJ IV PRN ×2 (11:08→23:09)
[2018-10-16] MEDS ORDERED: BISACODYL 10MG SUPP PR NR (16:45)
[2018-10-16] MEDS: GABAPENTIN 300MG CAPSULE PO SCH (18:46)
[2018-10-16] MEDS: LEVOFLOXACIN 250MG PREMIX 50 ML IV SCH (18:47)
[2018-10-16] MEDS: ATORVASTATIN CALCIUM 20MG TABLET PO SCH (21:16)
[2018-10-16] MEDS: MIRTAZAPINE 15MG TABLET PO SCH (21:17)
[2018-10-17] VITALS (11 sets, daily range): BP systolic 94–126; BP diastolic 39–70
[2018-10-17] MEDS: IPRATROPIUM/ALBUTEROL 0.5-3(2.5)MG/3ML NEB HHN SCH ×6 (00:34→20:47)
[2018-10-17 06:49] LABS: BASOPHILS % 0.3 % (0.0-2.0); EOSINOPHILS % 0.5 % (0.0-5.0); HEMATOCRIT. 29.5 % (36.0-48.0); HEMOGLOBIN. 9.3 g/dL (12.0-16.0); MEAN CORPUSCULAR HEMOGLOBIN 23.9 pg (28.0-32.0); MEAN CORPUSCULAR VOLUME 76.2 fL (81.0-99.0); MEAN PLATELET VOLUME 7.8 fl (7.4-10.4); MONOCYTES % 9.1 % (2.0-8.0); NEUTROPHILS % 79.1 % (40.0-76.0); PLATELET 230 x1000/uL (130-400); RED BLOOD CELL COUNT 3.88 mill/uL (4.2-5.4); RED CELL DISTRIBUTION WIDTH 24.1 % (11.6-14.6)
[2018-10-17 06:55] LABS: INR 1.1; PARTIAL THROMBOPLASTIN TIME 24.7 sec (23.4-31.0); PROTHROMBIN TIME 11.8 sec (9.6-11.0)
[2018-10-17] MEDS: PANTOPRAZOLE 40MG DR TABLET PO SCH (07:30)
[2018-10-17] MEDS: FOLIC ACID 1MG TABLET PO SCH (08:05)
[2018-10-17] MEDS: GABAPENTIN 100MG CAPSULE PO SCH ×3 (08:06→22:32)
[2018-10-17] MEDS: RANOLAZINE 500 MG TAB.SR.12H PO SCH ×2 (08:06→20:28)
[2018-10-17] MEDS: MEMANTINE HCL 10MG TABLET PO SCH (08:06)
[2018-10-17] MEDS: POTASSIUM CHLORIDE 20MEQ TABLET SR PO SCH ×2 (08:06→16:28)
[2018-10-17] MEDS: ALLOPURINOL 100 MG TABLET PO SCH (08:07)
[2018-10-17] MEDS: CARVEDILOL 3.125 MG TABLET PO SCH ×2 (08:53→20:26)
[2018-10-17] MEDS: FUROSEMIDE 40MG/4ML VIAL IVP SCH ×2 (08:53→20:24)
[2018-10-17] MEDS: SACUBITRIL/VALSARTAN 49MG/51MG TABLET PO SCH ×2 (08:54→20:26)
[2018-10-17] MEDS: METHYLPREDNISOLONE SOD SUCC 40 MG/ML VIAL IV SCH ×2 (08:57→16:31)
[2018-10-17] MEDS ORDERED: PROPOFOL 200MG/20ML VIAL IV ONE (11:22)
[2018-10-17] MEDS ORDERED: BACTERIOSTATIC SODIUM CHLORIDE 0.9% 30ML VIAL IJ ONE (13:52)
[2018-10-17] MEDS ORDERED: BISACODYL 10MG SUPP PR PRN (15:30)
[2018-10-17] MEDS ORDERED: FUROSEMIDE 40MG/4ML VIAL IVP ONE (16:00)
[2018-10-17] MEDS ORDERED: MIDODRINE HCL 5MG TABLET PO PRN (16:00)
[2018-10-17] MEDS: DOCUSATE SODIUM 100MG CAPSULE PO SCH (16:31)
[2018-10-17 16:50] LABS: BG BASE EXCESS 0.1 mmol/L (-2.0-2.0); BG CARBOXYHEMOGLOBIN 0.2 % (0.5-1.5); BG DEOXYHEMOGLOBIN 3.2 % (0.0-5.0); BG FRACTION INSPIRED OXYGEN 28; BG HCO3 ACT 25.1 mmol/L (22.0-26.0); BG METHEMOGLOBIN 0.5 % (0.0-1.5); BG OXYGEN SATURATION 96.8 % (92.0-98.5); BG OXYHEMOGLOBIN 96.1 % (94.0-97.0); BG PCO2 42.3 mmHg (35.0-45.0); BG PH 7.392 (7.350-7.450); BG PO2 99.1 mmHg (75.0-100.0); BG SAMPLE SITE LEFT BRACHIAL; BG TOTAL HEMOGLOBIN 10.4 g/dL (12.0-18.0); BG VENT MODE NASAL CANNULA
[2018-10-17] MEDS: GABAPENTIN 300MG CAPSULE PO SCH (17:33)
[2018-10-17] MEDS: LEVOFLOXACIN 250MG PREMIX 50 ML IV SCH (17:33)
[2018-10-17] MEDS: ATORVASTATIN CALCIUM 20MG TABLET PO SCH (20:27)
[2018-10-17] MEDS: MIRTAZAPINE 15MG TABLET PO SCH (20:27)
[2018-10-17] MEDS: LORAZEPAM 2MG/ML CPJ IV PRN (22:33)
[2018-10-18] VITALS (12 sets, daily range): BP systolic 88–141; BP diastolic 50–77
[2018-10-18] MEDS: IPRATROPIUM/ALBUTEROL 0.5-3(2.5)MG/3ML NEB HHN SCH ×6 (01:23→21:20)
[2018-10-18] MEDS: GABAPENTIN 100MG CAPSULE PO SCH ×3 (06:16→20:52)
[2018-10-18] MEDS: PANTOPRAZOLE 40MG DR TABLET PO SCH (06:17)
[2018-10-18] MEDS: METHYLPREDNISOLONE SOD SUCC 40 MG/ML VIAL IV SCH ×2 (08:51→17:41)
[2018-10-18] MEDS: DOCUSATE SODIUM 100MG CAPSULE PO SCH ×2 (08:52→17:41)
[2018-10-18] MEDS: FOLIC ACID 1MG TABLET PO SCH (08:52)
[2018-10-18] MEDS: CARVEDILOL 3.125 MG TABLET PO SCH ×2 (08:53→20:53)
[2018-10-18] MEDS: POTASSIUM CHLORIDE 20MEQ TABLET SR PO SCH ×2 (08:53→17:51)
[2018-10-18] MEDS: FUROSEMIDE 40MG/4ML VIAL IVP SCH (08:56)
[2018-10-18] MEDS: ALLOPURINOL 100 MG TABLET PO SCH (09:02)
[2018-10-18] MEDS: MEMANTINE HCL 10MG TABLET PO SCH (09:02)
[2018-10-18] MEDS: RANOLAZINE 500 MG TAB.SR.12H PO SCH ×2 (09:05→20:53)
[2018-10-18] MEDS: SACUBITRIL/VALSARTAN 49MG/51MG TABLET PO SCH ×2 (10:20→21:09)
[2018-10-18] MEDS ORDERED: CYANOCOBALAMIN 1000MCG/ML VIAL IM NR (13:15)
[2018-10-18] MEDS: LEVOFLOXACIN 250MG PREMIX 50 ML IV SCH (17:41)
[2018-10-18] MEDS: GABAPENTIN 300MG CAPSULE PO SCH (17:51)
[2018-10-18] MEDS: APIXABAN 2.5 MG TABLET PO SCH (17:58)
[2018-10-18] MEDS: ATORVASTATIN CALCIUM 20MG TABLET PO SCH (20:52)
[2018-10-18] MEDS: MIRTAZAPINE 15MG TABLET PO SCH (20:54)
[2018-10-19] VITALS (10 sets, daily range): BP systolic 92–125; BP diastolic 47–80
[2018-10-19] MEDS: LORAZEPAM 2MG/ML CPJ IV PRN (00:19)
[2018-10-19] MEDS: IPRATROPIUM/ALBUTEROL 0.5-3(2.5)MG/3ML NEB HHN SCH ×5 (00:44→17:11)
[2018-10-19] MEDS: GABAPENTIN 100MG CAPSULE PO SCH ×2 (06:36→14:28)
[2018-10-19 07:29] LABS: BASOPHILS % 0.2 % (0.0-2.0); HEMATOCRIT. 29.4 % (36.0-48.0); HEMOGLOBIN. 9.4 g/dL (12.0-16.0); LYMPHOCYTES % 7.4 % (20.0-50.0); MEAN CORPUSCULAR HEMOGLOBIN 24.4 pg (28.0-32.0); MEAN CORPUSCULAR VOLUME 76.1 fL (81.0-99.0); MEAN PLATELET VOLUME 8.5 fl (7.4-10.4); MONOCYTES % 6.7 % (2.0-8.0); NEUTROPHILS % 85.7 % (40.0-76.0); PLATELET 210 x1000/uL (130-400); RED BLOOD CELL COUNT 3.87 mill/uL (4.2-5.4); RED CELL DISTRIBUTION WIDTH 24.1 % (11.6-14.6)
[2018-10-19 08:16] LABS: CHLORIDE 105 mEq/L (98-107)
[2018-10-19] MEDS: CARVEDILOL 3.125 MG TABLET PO SCH (09:00)
[2018-10-19] MEDS: DOCUSATE SODIUM 100MG CAPSULE PO SCH (09:25)
[2018-10-19] MEDS: SACUBITRIL/VALSARTAN 49MG/51MG TABLET PO SCH (09:26)
[2018-10-19] MEDS: RANOLAZINE 500 MG TAB.SR.12H PO SCH (09:26)
[2018-10-19] MEDS: METHYLPREDNISOLONE SOD SUCC 40 MG/ML VIAL IV SCH ×2 (09:26→17:30)
[2018-10-19] MEDS: FOLIC ACID 1MG TABLET PO SCH (09:26)
[2018-10-19] MEDS: ALLOPURINOL 100 MG TABLET PO SCH (09:26)
[2018-10-19] MEDS: APIXABAN 2.5 MG TABLET PO SCH ×2 (09:26→17:30)
[2018-10-19] MEDS: PANTOPRAZOLE 40MG DR TABLET PO SCH (09:26)
[2018-10-19] MEDS: POTASSIUM CHLORIDE 20MEQ TABLET SR PO SCH ×2 (09:26→17:30)
[2018-10-19] MEDS ORDERED: MEMANTINE HCL 5MG TABLET PO SCH (09:30)
[2018-10-19] MEDS ORDERED: NA PHOS,M-B/NA PHOS,DI-BA ENEMA 118ML PR NR (11:00)
[2018-10-19] MEDS ORDERED: DOCUSATE SODIUM 250MG CAPSULE PO SCH (17:00)
== END 2018-10-19 23:36 | disposition home or self-care (01) | DRG 377 ==
LOC: ER 14:31 → 5WST 19:58 → EDBEDREQTM 20:02 → EDBEDREQ 20:02 → ENRESERV 23:35 → 5EST 10-13 22:41
PROVIDERS: ADMIT Internal Medicine; ATTEND Internal Medicine
PROC: 30233N1 Transfusion of Nonautologous Red Blood Cells into Peripheral Vein, Percutaneous Approach (ICD-10-PCS; 2018-10-11)
PROC: 02HV33Z Insertion of Infusion Device into Superior Vena Cava, Percutaneous Approach (ICD-10-PCS; principal; 2018-10-14)
PROC: B5181ZA Fluoroscopy of Superior Vena Cava using Low Osmolar Contrast, Guidance (ICD-10-PCS; 2018-10-14)
PROC: B548ZZA Ultrasonography of Superior Vena Cava, Guidance (ICD-10-PCS; 2018-10-14)
PROC: 0DB68ZX Excision of Stomach, Via Natural or Artificial Opening Endoscopic, Diagnostic (ICD-10-PCS; 2018-10-17)
DX: K29.71 Gastritis, unspecified, with bleeding (principal); I50.43 Acute on chronic combined systolic (congestive) and diastolic (congestive) heart failure; I13.0 Hypertensive heart and chronic kidney disease with heart failure and stage 1 through stage 4 chronic kidney disease, or unspecified chronic kidney disease; J44.1 Chronic obstructive pulmonary disease with (acute) exacerbation; I31.3 Pericardial effusion (noninflammatory); I42.9 Cardiomyopathy, unspecified; K31.82 Dieulafoy lesion (hemorrhagic) of stomach and duodenum; N18.9 Chronic kidney disease, unspecified; D50.9 Iron deficiency anemia, unspecified; I27.20 Pulmonary hypertension, unspecified; K21.9 Gastro-esophageal reflux disease without esophagitis; T45.515A Adverse effect of anticoagulants, initial encounter; E78.5 Hyperlipidemia, unspecified; K57.90 Diverticulosis of intestine, part unspecified, without perforation or abscess without bleeding; I48.2 Chronic atrial fibrillation; K59.00 Constipation, unspecified; M19.90 Unspecified osteoarthritis, unspecified site; I35.1 Nonrheumatic aortic (valve) insufficiency; Z79.01 Long term (current) use of anticoagulants; Z82.49 Family history of ischemic heart disease and other diseases of the circulatory system; Z90.49 Acquired absence of other specified parts of digestive tract; Z87.891 Personal history of nicotine dependence; Z99.81 Dependence on supplemental oxygen; Z90.710 Acquired absence of both cervix and uterus; Z88.0 Allergy status to penicillin; Z88.5 Allergy status to narcotic agent; Z95.810 Presence of automatic (implantable) cardiac defibrillator; Z79.899 Other long term (current) drug therapy; Z79.82 Long term (current) use of aspirin
CPT/HCPCS: 36415; 36573; 36600; 71045; 74018; 74176; 74177; 78278; 78582; 80048; 82270; 82375; 82607; 82728; 82746; 82805; 83540; 83550; 83615; 83735; 83880; 84466; 84484; 84550; 85014; 85018; 85027; 85044; 86300; 86850; 86900; 86920; 88305; 88312; 88313; 93005; 93306; 93970; 94640; 96374; 97162; 99285; A9558; A9560; C1725; J1940; J1956; J2060; J2704; J2920; J3420; J3490; J7040; J7050; J7620; P9016; Q9967

== ENCOUNTER 2018-11-15 16:07 | Inpatient (IN) | payer OTHER ==
[~2018-11-15] VITALS: Ht 167.6 cm; Wt 81.2 kg
[~2018-11-15 16:07] MED LIST changes: +ALBU90AE INH; +ALLO100T MT; +DOCU-272 PO; -ESCI20TA36 PO; +GABA300S PO; -LOSA25TA26 PO; +MEMA10TA19 MT; +MIRT15TA6 PO; +PANT40TA4 MT; -POTA10TA15 PO; +SACU1TAB7 MT; -TRAZ-251 PO
[2018-11-15] MEDS ORDERED: ALBUTEROL (0.083%) 2.5MG/3ML NEB HHN STA (16:22)
[2018-11-15] MEDS ORDERED: SODIUM CHLORIDE 0.9% 500 ML IV ONE (16:22)
[2018-11-15] MEDS ORDERED: IPRATROPIUM BROMIDE (0.02%) 0.5MG/2.5ML NEB HHN STA (16:22)
[2018-11-15 17:02] LABS: HEMOGLOBIN. 8.6 g/dL (12.0-16.0); MEAN CORPUSCULAR HEMOGLOBIN 23.5 pg (28.0-32.0); MEAN CORPUSCULAR VOLUME 76.4 fL (81.0-99.0); MEAN PLATELET VOLUME 8.3 fl (7.4-10.4); PLATELET 284 x1000/uL (130-400); RED BLOOD CELL COUNT 3.67 mill/uL (4.2-5.4); RED CELL DISTRIBUTION WIDTH 22.5 % (11.6-14.6)
[2018-11-15 17:08] LABS: INR 1.1; PROTHROMBIN TIME 11.3 sec (9.6-11.0)
[2018-11-15 17:10] LABS: CHLORIDE 99 mEq/L (98-107)
[2018-11-15 17:23] LABS: PLATELET ESTIMATE NORMAL
[2018-11-15] MEDS ORDERED: DILTIAZEM HCL 5MG/ML 5ML VIAL IV ONE (18:00)
[2018-11-15 20:30] VITALS: BP 107/48
[2018-11-15] MEDS ORDERED: RANO500T6 PO (21:44)
[2018-11-15] MEDS ORDERED: GABA-531 PO (21:44)
[2018-11-15] MEDS ORDERED: PRED10TA PO (21:44)
[2018-11-15] MEDS ORDERED: GABA-529 PO (21:44)
[2018-11-15] MEDS ORDERED: PROT40 MT (21:44)
[2018-11-15] MEDS ORDERED: APIX2.5T PO (21:44)
[2018-11-15] MEDS ORDERED: FURO80TA87 PO (21:44)
[2018-11-15] MEDS ORDERED: POTA-79 PO (21:44)
[2018-11-15] MEDS ORDERED: LORAZEPAM 2MG/ML CPJ IV PRN (22:30)
[2018-11-15] MEDS: METHYLPREDNISOLONE SOD SUCC 40 MG/ML VIAL IV SCH (22:47)
[2018-11-16] VITALS: BP 109/56
[2018-11-16] MEDS: LIDOCAINE 5% PATCH TOP SCH ×2 (00:18→20:36)
[2018-11-16] MEDS: IPRATROPIUM/ALBUTEROL 0.5-3(2.5)MG/3ML NEB HHN SCH ×6 (00:58→21:01)
[2018-11-16 04:00] VITALS: BP 109/53
[2018-11-16] MEDS: FUROSEMIDE 40MG/4ML VIAL IVP SCH ×2 (05:47→09:00)
[2018-11-16] MEDS: PANTOPRAZOLE 40MG DR TABLET PO SCH (05:47)
[2018-11-16 08:00] VITALS: BP 123/53
[2018-11-16] MEDS: METHYLPREDNISOLONE SOD SUCC 40 MG/ML VIAL IV SCH ×2 (10:17→20:29)
[2018-11-16] MEDS: APIXABAN 2.5 MG TABLET PO SCH ×2 (10:17→16:35)
[2018-11-16 12:00] VITALS: BP 113/60
[2018-11-16] MEDS: DIPHENHYDRAMINE 25MG CAPSULE PO PRN ×2 (14:31→20:28)
[2018-11-16 15:56] LABS: BG BASE EXCESS 6.4 mmol/L (-2.0-2.0); BG CARBOXYHEMOGLOBIN 0.2 % (0.5-1.5); BG DEOXYHEMOGLOBIN 8.3 % (0.0-5.0); BG HCO3 ACT 30.6 mmol/L (22.0-26.0); BG METHEMOGLOBIN 0.3 % (0.0-1.5); BG OXYGEN SATURATION 91.7 % (92.0-98.5); BG OXYHEMOGLOBIN 91.2 % (94.0-97.0); BG PCO2 42.4 mmHg (35.0-45.0); BG PH 7.476 (7.350-7.450); BG PO2 61.6 mmHg (75.0-100.0); BG SAMPLE SITE RIGHT BRACHIAL; BG TOTAL HEMOGLOBIN 8.8 g/dL (12.0-18.0); BG VENT MODE NASAL CANNULA
[2018-11-16 16:00] VITALS: BP 157/66
[2018-11-16] MEDS: ALLOPURINOL 100 MG TABLET PO SCH (16:35)
[2018-11-16] MEDS: GABAPENTIN 100MG CAPSULE PO SCH ×2 (16:36→21:26)
[2018-11-16 20:00] VITALS: BP 118/62
[2018-11-16] MEDS: ATORVASTATIN CALCIUM 20MG TABLET PO SCH (20:28)
[2018-11-16 20:54] LABS: HEMATOCRIT 25.4 % (36.0-48.0); HEMOGLOBIN 7.9 g/dL (12.0-16.0); MEAN CORPUSCULAR HEMOGLOBIN 23.4 pg (28.0-32.0); MEAN CORPUSCULAR VOLUME 75.7 fL (81.0-99.0); PLATELET 275 x1000/uL (130-400); RED BLOOD CELL COUNT 3.36 mill/uL (4.2-5.4); RED CELL DISTRIBUTION WIDTH 22.6 % (11.6-14.6)
[2018-11-16] MEDS: SACUBITRIL/VALSARTAN 49MG/51MG TABLET PO SCH (21:33)
[2018-11-16 21:49] LABS: VITAMIN B12 SERUM 1964 pg/mL (211-911)
[2018-11-17] VITALS: BP 105/57
[2018-11-17] MEDS: IPRATROPIUM/ALBUTEROL 0.5-3(2.5)MG/3ML NEB HHN SCH ×6 (00:30→21:24)
[2018-11-17] MEDS: DIAZEPAM 5 MG TABLET PO PRN ×2 (00:41→23:32)
[2018-11-17 04:00] VITALS: BP 104/66
[2018-11-17] MEDS: GABAPENTIN 100MG CAPSULE PO SCH ×3 (06:18→22:05)
[2018-11-17] MEDS: PANTOPRAZOLE 40MG DR TABLET PO SCH (06:18)
[2018-11-17 07:51] LABS: BASOPHILS % 0.2 % (0.0-2.0); HEMATOCRIT. 24.4 % (36.0-48.0); HEMOGLOBIN. 7.6 g/dL (12.0-16.0); MEAN CORPUSCULAR HEMOGLOBIN 23.4 pg (28.0-32.0); MEAN CORPUSCULAR VOLUME 74.8 fL (81.0-99.0); MEAN PLATELET VOLUME 8.5 fl (7.4-10.4); MONOCYTES % 6.9 % (2.0-8.0); NEUTROPHILS % 84.9 % (40.0-76.0); PLATELET 274 x1000/uL (130-400); RED BLOOD CELL COUNT 3.26 mill/uL (4.2-5.4); RED CELL DISTRIBUTION WIDTH 22.7 % (11.6-14.6)
[2018-11-17 08:00] VITALS: BP 118/53
[2018-11-17 08:09] LABS: CHLORIDE 103 mEq/L (98-107)
[2018-11-17] MEDS: FUROSEMIDE 40MG/4ML VIAL IVP SCH (10:03)
[2018-11-17] MEDS: METHYLPREDNISOLONE SOD SUCC 40 MG/ML VIAL IV SCH ×2 (10:03→20:19)
[2018-11-17] MEDS: APIXABAN 2.5 MG TABLET PO SCH (10:03)
[2018-11-17] MEDS: SACUBITRIL/VALSARTAN 49MG/51MG TABLET PO SCH ×2 (10:03→20:19)
[2018-11-17] MEDS: ALLOPURINOL 100 MG TABLET PO SCH (10:03)
[2018-11-17 12:35] VITALS: BP 117/76
[2018-11-17] MEDS ORDERED: LEVOFLOXACIN 500MG PREMIX 100 ML IV NR (16:00)
[2018-11-17 18:22] LABS: HEMATOCRIT 25.9 % (36.0-48.0); HEMOGLOBIN 8.1 g/dL (12.0-16.0)
[2018-11-17 20:00] VITALS: BP 112/52
[2018-11-17] MEDS: LIDOCAINE 5% PATCH TOP SCH (20:19)
[2018-11-17] MEDS: ATORVASTATIN CALCIUM 20MG TABLET PO SCH (20:19)
[2018-11-18] VITALS: BP 117/65
[2018-11-18] MEDS: IPRATROPIUM/ALBUTEROL 0.5-3(2.5)MG/3ML NEB HHN SCH ×6 (01:19→20:08)
[2018-11-18 04:00] VITALS: BP 109/53
[2018-11-18] MEDS: GABAPENTIN 100MG CAPSULE PO SCH ×3 (06:27→21:06)
[2018-11-18] MEDS: PANTOPRAZOLE 40MG DR TABLET PO SCH (06:27)
[2018-11-18] MEDS: DIPHENHYDRAMINE 25MG CAPSULE PO PRN ×2 (06:33→15:42)
[2018-11-18 07:08] LABS: CHLORIDE 104 mEq/L (98-107)
[2018-11-18 07:14] LABS: LDL CHOLESTEROL 89 mg/dL (5-100)
[2018-11-18 07:16] LABS: CREATINE KINASE 34 IU/L (26-192)
[2018-11-18 07:17] LABS: HDL CHOLESTEROL 67 mg/dL (40-59); T4 FREE 0.89 ng/dL (0.76-1.46)
[2018-11-18 07:32] LABS: HEMATOCRIT. 23.8 % (36.0-48.0); HEMOGLOBIN. 7.5 g/dL (12.0-16.0); MEAN CORPUSCULAR HEMOGLOBIN 23.4 pg (28.0-32.0); MEAN CORPUSCULAR VOLUME 74.1 fL (81.0-99.0); MEAN PLATELET VOLUME 8.3 fl (7.4-10.4); PLATELET 275 x1000/uL (130-400); RED BLOOD CELL COUNT 3.21 mill/uL (4.2-5.4); RED CELL DISTRIBUTION WIDTH 22.2 % (11.6-14.6)
[2018-11-18 08:00] VITALS: BP 100/54
[2018-11-18] MEDS: FUROSEMIDE 40MG/4ML VIAL IVP SCH (10:08)
[2018-11-18] MEDS: SACUBITRIL/VALSARTAN 49MG/51MG TABLET PO SCH ×2 (10:08→21:06)
[2018-11-18] MEDS: METHYLPREDNISOLONE SOD SUCC 40 MG/ML VIAL IV SCH ×2 (10:08→21:06)
[2018-11-18] MEDS: ALLOPURINOL 100 MG TABLET PO SCH (10:08)
[2018-11-18] MEDS ORDERED: LACTULOSE 20G/30ML UDC PO ONE (11:30)
[2018-11-18] MEDS ORDERED: LACTULOSE 20G/30ML UDC PO PRN (11:30)
[2018-11-18] MEDS ORDERED: DIAZEPAM 5 MG TABLET PO PRN (11:30)
[2018-11-18] MEDS ORDERED: NA PHOS,M-B/NA PHOS,DI-BA ENEMA 118ML PR NR (11:30)
[2018-11-18 12:00] VITALS: BP 112/56
[2018-11-18] MEDS: DOCUSATE SODIUM 250MG CAPSULE PO SCH (12:20)
[2018-11-18] MEDS ORDERED: ALBU90AE INH (13:43)
[2018-11-18] MEDS ORDERED: MIRT15TA6 PO (13:43)
[2018-11-18] MEDS ORDERED: ALLO100T PO (13:43)
[2018-11-18] MEDS ORDERED: ASCO-339 PO (13:43)
[2018-11-18] MEDS ORDERED: RANO500T3 PO (13:43)
[2018-11-18] MEDS: LEVOFLOXACIN 250MG PREMIX 50 ML IV SCH (15:42)
[2018-11-18 16:00] VITALS: BP 108/64
[2018-11-18 20:00] VITALS: BP 95/49
[2018-11-18 20:35] LABS: PLATELET ESTIMATE NORMAL
[2018-11-18] MEDS: LIDOCAINE 5% PATCH TOP SCH (21:00)
[2018-11-18] MEDS: ATORVASTATIN CALCIUM 20MG TABLET PO SCH (21:06)
[2018-11-19] VITALS: BP 114/51
[2018-11-19] MEDS: IPRATROPIUM/ALBUTEROL 0.5-3(2.5)MG/3ML NEB HHN SCH ×5 (00:05→21:07)
[2018-11-19 04:00] VITALS: BP 98/63
[2018-11-19 07:03] LABS: HEMATOCRIT 24.1 % (36.0-48.0); HEMOGLOBIN 7.7 g/dL (12.0-16.0); MEAN CORPUSCULAR HEMOGLOBIN 23.6 pg (28.0-32.0); MEAN CORPUSCULAR VOLUME 74.4 fL (81.0-99.0); PLATELET 287 x1000/uL (130-400); RED BLOOD CELL COUNT 3.25 mill/uL (4.2-5.4); RED CELL DISTRIBUTION WIDTH 22.3 % (11.6-14.6)
[2018-11-19] MEDS: PANTOPRAZOLE 40MG DR TABLET PO SCH (07:04)
[2018-11-19] MEDS: GABAPENTIN 100MG CAPSULE PO SCH (07:04)
[2018-11-19 07:11] LABS: CHLORIDE 102 mEq/L (98-107)
[2018-11-19 08:00] VITALS: BP 117/61
[2018-11-19] MEDS: FUROSEMIDE 40MG/4ML VIAL IVP SCH ×2 (08:32→21:04)
[2018-11-19] MEDS: METHYLPREDNISOLONE SOD SUCC 40 MG/ML VIAL IV SCH (08:32)
[2018-11-19] MEDS: DOCUSATE SODIUM 250MG CAPSULE PO SCH (08:32)
[2018-11-19] MEDS: ALLOPURINOL 100 MG TABLET PO SCH (08:32)
[2018-11-19] MEDS: SACUBITRIL/VALSARTAN 49MG/51MG TABLET PO SCH ×2 (08:33→21:05)
[2018-11-19] MEDS: DIPHENHYDRAMINE 25MG CAPSULE PO PRN ×2 (08:44→23:31)
[2018-11-19 09:15] LABS: SACCHAROMYCES CEREVISIAE IGM <20.0 Units (0.0-24.9)
[2018-11-19] MEDS ORDERED: DIAZEPAM 5 MG TABLET PO PRN (11:45)
[2018-11-19 12:00] VITALS: BP 95/49
[2018-11-19] MEDS: LEVOFLOXACIN 250MG PREMIX 50 ML IV SCH (14:25)
[2018-11-19 15:06] LABS: ATYPICAL pANCA <1:20 titer (Neg:<1:20)
[2018-11-19 16:00] VITALS: BP 104/59
[2018-11-19 20:00] VITALS: BP 116/57
[2018-11-19] MEDS: GABAPENTIN 300MG CAPSULE PO SCH (21:04)
[2018-11-19] MEDS: ATORVASTATIN CALCIUM 20MG TABLET PO SCH (21:04)
[2018-11-19] MEDS: LIDOCAINE 5% PATCH TOP SCH (21:09)
[2018-11-20] VITALS: BP 100/48
[2018-11-20] MEDS: IPRATROPIUM/ALBUTEROL 0.5-3(2.5)MG/3ML NEB HHN SCH ×6 (01:00→20:53)
[2018-11-20 04:00] VITALS: BP 108/55
[2018-11-20] MEDS: PANTOPRAZOLE 40MG DR TABLET PO SCH (06:17)
[2018-11-20 08:00] VITALS: BP 93/52
[2018-11-20 08:48] LABS: HEMATOCRIT 25.7 % (36.0-48.0); MEAN CORPUSCULAR VOLUME 73.8 fL (81.0-99.0); PLATELET 319 x1000/uL (130-400); RED BLOOD CELL COUNT 3.48 mill/uL (4.2-5.4); RED CELL DISTRIBUTION WIDTH 22.1 % (11.6-14.6)
[2018-11-20] MEDS: GABAPENTIN 100MG CAPSULE PO SCH (08:54)
[2018-11-20] MEDS: FUROSEMIDE 40MG/4ML VIAL IVP SCH ×2 (08:54→21:17)
[2018-11-20] MEDS: DOCUSATE SODIUM 250MG CAPSULE PO SCH (08:54)
[2018-11-20] MEDS: ALLOPURINOL 100 MG TABLET PO SCH (08:54)
[2018-11-20] MEDS: SACUBITRIL/VALSARTAN 49MG/51MG TABLET PO SCH ×2 (08:56→21:17)
[2018-11-20] MEDS: METHYLPREDNISOLONE SOD SUCC 40 MG/ML VIAL IV SCH (08:59)
[2018-11-20 09:01] LABS: CHLORIDE 100 mEq/L (98-107)
[2018-11-20] MEDS: LIDOCAINE 5% PATCH TOP SCH ×2 (09:05→21:17)
[2018-11-20] MEDS ORDERED: POTASSIUM CHLORIDE 20MEQ TABLET SR PO SCH ×2 (09:45→17:00)
[2018-11-20] MEDS: LEVOFLOXACIN 250MG TABLET PO SCH (10:14)
[2018-11-20 12:00] VITALS: BP 122/50
[2018-11-20] MEDS: CARVEDILOL 3.125 MG TABLET PO SCH ×2 (14:46→21:17)
[2018-11-20 16:00] VITALS: BP 101/49
[2018-11-20] MEDS: ENOXAPARIN 80MG/0.8ML SYR SUBCUT SCH (18:52)
[2018-11-20 20:00] VITALS: BP 120/63
[2018-11-20] MEDS: ATORVASTATIN CALCIUM 20MG TABLET PO SCH (21:17)
[2018-11-20] MEDS: GABAPENTIN 300MG CAPSULE PO SCH (21:17)
[2018-11-20] MEDS: DIPHENHYDRAMINE 25MG CAPSULE PO PRN (23:33)
[2018-11-21] VITALS: BP 99/52
[2018-11-21] MEDS: IPRATROPIUM/ALBUTEROL 0.5-3(2.5)MG/3ML NEB HHN SCH ×5 (00:53→15:55)
[2018-11-21 04:00] VITALS: BP 98/55
[2018-11-21 05:58] LABS: BASOPHILS % 0.2 % (0.0-2.0); EOSINOPHILS % 0.4 % (0.0-5.0); HEMATOCRIT. 25.2 % (36.0-48.0); HEMOGLOBIN. 7.7 g/dL (12.0-16.0); LYMPHOCYTES % 16.5 % (20.0-50.0); MEAN CORPUSCULAR HEMOGLOBIN 22.6 pg (28.0-32.0); MEAN CORPUSCULAR VOLUME 73.6 fL (81.0-99.0); MEAN PLATELET VOLUME 8.3 fl (7.4-10.4); MONOCYTES % 9.2 % (2.0-8.0); NEUTROPHILS % 73.7 % (40.0-76.0); PLATELET 308 x1000/uL (130-400); RED BLOOD CELL COUNT 3.42 mill/uL (4.2-5.4); RED CELL DISTRIBUTION WIDTH 22.7 % (11.6-14.6)
[2018-11-21 06:27] LABS: CHLORIDE 102 mEq/L (98-107)
[2018-11-21] MEDS: PANTOPRAZOLE 40MG DR TABLET PO SCH (06:33)
[2018-11-21] MEDS: ENOXAPARIN 80MG/0.8ML SYR SUBCUT SCH ×2 (06:33→18:07)
[2018-11-21 08:00] VITALS: BP 102/56
[2018-11-21] MEDS: SACUBITRIL/VALSARTAN 49MG/51MG TABLET PO SCH (09:00)
[2018-11-21] MEDS: GABAPENTIN 100MG CAPSULE PO SCH (09:25)
[2018-11-21] MEDS: DOCUSATE SODIUM 250MG CAPSULE PO SCH (09:25)
[2018-11-21] MEDS: ALLOPURINOL 100 MG TABLET PO SCH (09:25)
[2018-11-21] MEDS: CARVEDILOL 3.125 MG TABLET PO SCH (09:26)
[2018-11-21] MEDS: METHYLPREDNISOLONE SOD SUCC 40 MG/ML VIAL IV SCH (09:26)
[2018-11-21] MEDS: FUROSEMIDE 40MG/4ML VIAL IVP SCH (11:47)
[2018-11-21] MEDS: LEVOFLOXACIN 250MG TABLET PO SCH (11:47)
[2018-11-21 12:00] VITALS: BP 110/57
[2018-11-21] MEDS ORDERED: CARVEDILOL 6.25 MG TABLET PO NR (14:03)
[2018-11-21 14:12] VITALS: BP_SYST 103; BP_SYST 110; BP_DIAS 55; BP_DIAS 57
[2018-11-21 16:00] VITALS: BP 101/56
[2018-11-21] MEDS ORDERED: FUROSEMIDE 40MG TABLET PO SCH (18:00)
[2018-11-21] MEDS ORDERED: PANTOPRAZOLE 40MG DR TABLET PO SCH (21:00)
[2018-11-21] MEDS ORDERED: CARVEDILOL 12.5MG TABLET PO SCH (21:00)
[2018-11-22 13:09] LABS: SACCHAROMYCES CEREVISIAE IGG 24.5 Units (0.0-24.9)
== END 2018-11-21 18:35 | disposition home or self-care (01) | DRG 291 ==
LOC: ER 16:15 → 8WST 16:29 → EDBEDREQ 18:01 → ENRESERV 18:25 → ER 21:04
PROVIDERS: ADMIT Internal Medicine; ATTEND Internal Medicine
PROC: 4B02XTZ Measurement of Cardiac Defibrillator, External Approach (ICD-10-PCS; principal; 2018-11-16)
DX: I13.0 Hypertensive heart and chronic kidney disease with heart failure and stage 1 through stage 4 chronic kidney disease, or unspecified chronic kidney disease (principal); I50.43 Acute on chronic combined systolic (congestive) and diastolic (congestive) heart failure; J96.20 Acute and chronic respiratory failure, unspecified whether with hypoxia or hypercapnia; J18.9 Pneumonia, unspecified organism; J44.1 Chronic obstructive pulmonary disease with (acute) exacerbation; I31.3 Pericardial effusion (noninflammatory); I48.92 Unspecified atrial flutter; K86.3 Pseudocyst of pancreas; J44.0 Chronic obstructive pulmonary disease with (acute) lower respiratory infection; I42.0 Dilated cardiomyopathy; K57.90 Diverticulosis of intestine, part unspecified, without perforation or abscess without bleeding; K59.00 Constipation, unspecified; M19.90 Unspecified osteoarthritis, unspecified site; N18.9 Chronic kidney disease, unspecified; I48.91 Unspecified atrial fibrillation; I27.20 Pulmonary hypertension, unspecified; G57.90 Unspecified mononeuropathy of unspecified lower limb; E78.5 Hyperlipidemia, unspecified; E87.6 Hypokalemia; K21.9 Gastro-esophageal reflux disease without esophagitis; M10.9 Gout, unspecified; I35.1 Nonrheumatic aortic (valve) insufficiency; R73.9 Hyperglycemia, unspecified; D50.9 Iron deficiency anemia, unspecified; M47.816 Spondylosis without myelopathy or radiculopathy, lumbar region; M47.817 Spondylosis without myelopathy or radiculopathy, lumbosacral region; M48.061 Spinal stenosis, lumbar region without neurogenic claudication; R00.0 Tachycardia, unspecified; I95.89 Other hypotension; Z99.81 Dependence on supplemental oxygen; Z90.710 Acquired absence of both cervix and uterus; Z90.49 Acquired absence of other specified parts of digestive tract; Z82.49 Family history of ischemic heart disease and other diseases of the circulatory system; Z87.891 Personal history of nicotine dependence; Z88.0 Allergy status to penicillin; Z88.6 Allergy status to analgesic agent; Z79.899 Other long term (current) drug therapy; Z79.01 Long term (current) use of anticoagulants; Z95.810 Presence of automatic (implantable) cardiac defibrillator
CPT/HCPCS: 36415; 36600; 71045; 72131; 80048; 80061; 82270; 82375; 82550; 82607; 82805; 83036; 83605; 83735; 83880; 84439; 84443; 84481; 84484; 84550; 85014; 85018; 85027; 86256; 86671; 86850; 86900; 93005; 93923; 93970; 94640; 96374; 97162; 99285; J1650; J1940; J1956; J2060; J2920; J3490; J7030; J7611; J7620; Q0163

== ENCOUNTER 2019-05-06 22:03 | Inpatient (IN) | payer OTHER ==
[~2019-05-06] VITALS: Ht 167.6 cm; Wt 75.3 kg
[~2019-05-06 22:03] MED LIST changes: -ALLO100T MT; +ALLO100T PO; +ASCO-339 PO; -BUDE6HFA INH; +CARV3.1242 MT; +DILT30TA38 MT; +FURO-151 PO; +FURO80TA87 PO; +GABA-529 PO; -GABA300S PO; -MEMA10TA19 MT; +MEMA10TA55 MT; +P20 PO; -PANT40TA4 MT; +PROT40 MT; -RANO500T3 MT; +RANO500T3 PO
[2019-05-06] MEDS ORDERED: MORPHINE SULFATE 4 MG/ML CPJ (NOT FOR IM USE) IV STA (23:46)
[2019-05-06] MEDS ORDERED: ONDANSETRON HCL 4MG/2ML INJ IV STA (23:46)
[2019-05-07] MEDS ORDERED: SODIUM CHLORIDE 0.9% 1000ML BAG (SEPSIS BOLUS) IV ONE
[2019-05-07 00:51] LABS: HEMATOCRIT. 34.2 % (36.0-48.0); HEMOGLOBIN. 10.5 g/dL (12.0-16.0); MEAN CORPUSCULAR HEMOGLOBIN 22.4 pg (28.0-32.0); MEAN CORPUSCULAR VOLUME 73.2 fL (81.0-99.0); MEAN PLATELET VOLUME 7.7 fl (7.4-10.4); PLATELET 262 x1000/uL (130-400); RED BLOOD CELL COUNT 4.67 mill/uL (4.2-5.4); RED CELL DISTRIBUTION WIDTH 19.1 % (11.6-14.6)
[2019-05-07 00:56] LABS: CHLORIDE 102 mEq/L (98-107)
[2019-05-07 01:15] LABS: CLARITY URINE CLEAR (CLEAR); COLOR URINE YELLOW (YELLOW); KETONES URINE NEGATIVE (NEGATIVE); LEUKOCYTE ESTERASE URINE TRACE (NEGATIVE); NITRITE URINE NEGATIVE (NEGATIVE); OCCULT BLOOD URINE NEGATIVE (NEGATIVE); PH URINE 6.5 (4.5-8.0); PROTEIN URINE NEGATIVE (NEGATIVE); SPECIFIC GRAVITY URINE 1.008 (1.005-1.030); UROBILINOGEN URINE 0.2 E.U./dL (0.2-1.0)
[2019-05-07] MEDS ORDERED: LEVOFLOXACIN 750MG PREMIX 150 ML IV ONE (04:15)
[2019-05-07] MEDS ORDERED: MORPHINE SULFATE 2 MG/ML CPJ (NOT FOR IM USE) IV NR (05:00)
[2019-05-07] MEDS ORDERED: ONDANSETRON HCL 4MG/2ML INJ IV NR (05:00)
[2019-05-07 05:09] LABS: PLATELET ESTIMATE NORMAL
[2019-05-07] MEDS ORDERED: DIPHENHYDRAMINE 50MG/ML VIAL IV PRN (09:15)
[2019-05-07 09:30] VITALS: BP 115/55
[2019-05-07 10:00] VITALS: BP 115/55
[2019-05-07 12:00] VITALS: BP 107/52
[2019-05-07] MEDS ORDERED: MIRTAZAPINE 15MG TABLET PO PRN (12:15)
[2019-05-07] MEDS ORDERED: MAGNESIUM/ALUMINUM HYDROXIDE/SIMETHICONE 30ML UDC PO PRN (12:15)
[2019-05-07] MEDS ORDERED: ONDANSETRON HCL 4MG/2ML INJ IV PRN (12:15)
[2019-05-07] MEDS ORDERED: GUAIFENESIN 200MG/10ML SUGAR FREE UDC PO PRN (12:15)
[2019-05-07] MEDS ORDERED: GABAPENTIN 100MG CAPSULE PO SCH (12:15)
[2019-05-07] MEDS ORDERED: ACETAMINOPHEN 650MG SUPP PR PRN (12:15)
[2019-05-07] MEDS ORDERED: IPRATROPIUM/ALBUTEROL 0.5-3(2.5)MG/3ML NEB NEB PRN (12:15)
[2019-05-07] MEDS ORDERED: HYDROCODONE/ACETAMINOPHEN 5/325MG TABLET PO PRN (12:15)
[2019-05-07] MEDS ORDERED: DOCUSATE SODIUM 100MG CAPSULE PO PRN (12:15)
[2019-05-07] MEDS ORDERED: NA PHOS,M-B/NA PHOS,DI-BA ENEMA 118ML PR PRN (12:15)
[2019-05-07] MEDS ORDERED: LORAZEPAM 0.5MG TABLET PO PRN (12:15)
[2019-05-07] MEDS ORDERED: CLONIDINE 0.1MG TABLET PO PRN (12:15)
[2019-05-07] MEDS ORDERED: GABA-531 PO (12:16)
[2019-05-07] MEDS: DILTIAZEM HCL 30MG TABLET PO SCH ×3 (14:00→22:00)
[2019-05-07] MEDS: IPRATROPIUM/ALBUTEROL 0.5-3(2.5)MG/3ML NEB NEB SCH ×2 (14:32→20:59)
[2019-05-07] MEDS: BUDESONIDE 0.5MG/2ML NEB HHN SCH ×2 (14:32→20:58)
[2019-05-07] MEDS ORDERED: VANCOMYCIN 1250MG in DEXTROSE 5% WATER 250ML IV NR (15:00)
[2019-05-07] MEDS: PANTOPRAZOLE 40MG DR TABLET PO SCH (15:07)
[2019-05-07 15:43] LABS: BASOPHILS % 0.4 % (0.0-2.0); EOSINOPHILS % 1.9 % (0.0-5.0); HEMOGLOBIN. 8.1 g/dL (12.0-16.0); LYMPHOCYTES % 12.9 % (20.0-50.0); MEAN CORPUSCULAR HEMOGLOBIN 22.8 pg (28.0-32.0); MEAN CORPUSCULAR VOLUME 73.7 fL (81.0-99.0); MEAN PLATELET VOLUME 7.7 fl (7.4-10.4); MONOCYTES % 11.6 % (2.0-8.0); NEUTROPHILS % 73.2 % (40.0-76.0); PLATELET 192 x1000/uL (130-400); RED BLOOD CELL COUNT 3.53 mill/uL (4.2-5.4); RED CELL DISTRIBUTION WIDTH 18.3 % (11.6-14.6)
[2019-05-07 16:00] VITALS: BP 102/52
[2019-05-07] MEDS ORDERED: FUROSEMIDE 40MG TABLET PO SCH (17:15)
[2019-05-07 17:29] LABS: INR 1.2; PROTHROMBIN TIME 12.1 sec (9.6-11.0)
[2019-05-07] MEDS: ALLOPURINOL 100 MG TABLET PO SCH (18:35)
[2019-05-07] MEDS: RANOLAZINE 500 MG TAB.SR.12H PO SCH (18:35)
[2019-05-07] MEDS: CARVEDILOL 3.125 MG TABLET PO SCH (18:38)
[2019-05-07] MEDS: SACUBITRIL/VALSARTAN 49MG/51MG TABLET PO SCH (18:39)
[2019-05-07 20:00] VITALS: BP 85/38
[2019-05-07] MEDS: SODIUM CHLORIDE 0.45% 1,000 ML IV SCH (20:30)
[2019-05-07] MEDS: ATORVASTATIN CALCIUM 20MG TABLET PO SCH (21:42)
[2019-05-07] MEDS: GABAPENTIN 300MG CAPSULE PO SCH (21:42)
[2019-05-08] VITALS (7 sets, daily range): BP systolic 90–117; BP diastolic 32–60
[2019-05-08] MEDS: IPRATROPIUM/ALBUTEROL 0.5-3(2.5)MG/3ML NEB NEB SCH ×4 (04:22→20:45)
[2019-05-08] MEDS: DILTIAZEM HCL 30MG TABLET PO SCH ×2 (05:48→13:41)
[2019-05-08] MEDS: RANOLAZINE 500 MG TAB.SR.12H PO SCH ×2 (05:48→17:36)
[2019-05-08 08:08] LABS: BASOPHILS % 0.6 % (0.0-2.0); EOSINOPHILS % 2.6 % (0.0-5.0); HEMATOCRIT. 23.8 % (36.0-48.0); HEMOGLOBIN. 7.3 g/dL (12.0-16.0); LYMPHOCYTES % 14.9 % (20.0-50.0); MEAN CORPUSCULAR HEMOGLOBIN 22.6 pg (28.0-32.0); MEAN CORPUSCULAR VOLUME 73.5 fL (81.0-99.0); MEAN PLATELET VOLUME 7.8 fl (7.4-10.4); MONOCYTES % 10.4 % (2.0-8.0); NEUTROPHILS % 71.5 % (40.0-76.0); PLATELET 179 x1000/uL (130-400); RED BLOOD CELL COUNT 3.24 mill/uL (4.2-5.4); RED CELL DISTRIBUTION WIDTH 18.7 % (11.6-14.6)
[2019-05-08 08:28] LABS: CHLORIDE 109 mEq/L (98-107)
[2019-05-08] MEDS ORDERED: MEDICATION NOT ON FORMULARY EA (Ascorbate Calcium (Vitamin C) 500 MG) PO SCH (09:00)
[2019-05-08] MEDS: CARVEDILOL 3.125 MG TABLET PO SCH ×3 (09:00→17:00)
[2019-05-08] MEDS: BUDESONIDE 0.5MG/2ML NEB HHN SCH ×2 (09:09→20:44)
[2019-05-08] MEDS: PANTOPRAZOLE 40MG DR TABLET PO SCH (09:18)
[2019-05-08] MEDS: SACUBITRIL/VALSARTAN 49MG/51MG TABLET PO SCH ×2 (09:19→17:36)
[2019-05-08] MEDS: FOLIC ACID 1MG TABLET PO SCH (09:19)
[2019-05-08] MEDS: MEMANTINE HCL 10MG TABLET PO SCH (09:20)
[2019-05-08] MEDS: ASCORBIC ACID 500 MG TABLET PO SCH (09:20)
[2019-05-08] MEDS: DOCUSATE SODIUM 100MG CAPSULE PO SCH (09:21)
[2019-05-08] MEDS: ALLOPURINOL 100 MG TABLET PO SCH ×2 (09:21→17:36)
[2019-05-08] MEDS: ACETAMINOPHEN 325MG TABLET PO PRN (11:00)
[2019-05-08] MEDS: SODIUM CHLORIDE 0.45% 1,000 ML IV SCH (11:10)
[2019-05-08] MEDS ORDERED: POTASSIUM CHLORIDE 20MEQ TABLET SR PO NR (11:30)
[2019-05-08] MEDS: VANCOMYCIN 1 G PREMIX 200 ML IV SCH (13:04)
[2019-05-08 13:59] LABS: HEMATOCRIT 24.3 % (36.0-48.0); HEMOGLOBIN 7.6 g/dL (12.0-16.0)
[2019-05-08] MEDS ORDERED: VANCOMYCIN 750 MG PREMIX 150 ML IV SCH (15:00)
[2019-05-08] MEDS ORDERED: MECLIZINE 25MG TABLET PO PRN (19:00)
[2019-05-08 19:35] LABS: TOTAL IRON BINDING CAPACITY 264 ug/dL (250-450)
[2019-05-08 19:47] LABS: FOLIC ACID (FOLATE) SERUM >20 ng/mL ng/mL (>5.38)
[2019-05-08 19:55] LABS: FERRITIN 27 ng/mL (10-291)
[2019-05-08 19:59] LABS: VITAMIN B12 SERUM 1248 pg/mL (211-911)
[2019-05-08] MEDS: GABAPENTIN 300MG CAPSULE PO SCH (21:12)
[2019-05-08] MEDS: ATORVASTATIN CALCIUM 20MG TABLET PO SCH (21:12)
[2019-05-08] MEDS: KETOROLAC 15MG/ML VIAL IV PRN (21:21)
[2019-05-09] VITALS (15 sets, daily range): BP systolic 92–118; BP diastolic 36–59
[2019-05-09] MEDS: IPRATROPIUM/ALBUTEROL 0.5-3(2.5)MG/3ML NEB NEB SCH ×3 (02:31→15:53)
[2019-05-09] MEDS: VANCOMYCIN 1 G PREMIX 200 ML IV SCH (05:15)
[2019-05-09] MEDS: SODIUM CHLORIDE 0.45% 1,000 ML IV SCH ×2 (05:16→21:04)
[2019-05-09] MEDS: RANOLAZINE 500 MG TAB.SR.12H PO SCH ×2 (05:16→17:06)
[2019-05-09] MEDS: DIPHENHYDRAMINE 50MG/ML VIAL IV PRN (05:16)
[2019-05-09 07:39] LABS: BASOPHILS % 0.3 % (0.0-2.0); EOSINOPHILS % 2.6 % (0.0-5.0); HEMATOCRIT. 21.3 % (36.0-48.0); LYMPHOCYTES % 15.1 % (20.0-50.0); MEAN CORPUSCULAR VOLUME 73.1 fL (81.0-99.0); MEAN PLATELET VOLUME 7.8 fl (7.4-10.4); PLATELET 155 x1000/uL (130-400); RED BLOOD CELL COUNT 2.92 mill/uL (4.2-5.4)
[2019-05-09 08:23] LABS: HEMOGLOBIN. 6.7 g/dL (12.0-16.0)
[2019-05-09] MEDS: SACUBITRIL/VALSARTAN 49MG/51MG TABLET PO SCH ×2 (09:00→17:00)
[2019-05-09] MEDS: ASCORBIC ACID 500 MG TABLET PO SCH (09:19)
[2019-05-09] MEDS: ALLOPURINOL 100 MG TABLET PO SCH ×2 (09:19→17:06)
[2019-05-09] MEDS: DOCUSATE SODIUM 100MG CAPSULE PO SCH (09:19)
[2019-05-09] MEDS: MEMANTINE HCL 10MG TABLET PO SCH (09:19)
[2019-05-09] MEDS: PANTOPRAZOLE 40MG DR TABLET PO SCH (09:19)
[2019-05-09] MEDS: FOLIC ACID 1MG TABLET PO SCH (09:19)
[2019-05-09] MEDS: ACETAMINOPHEN 325MG TABLET PO PRN (13:16)
[2019-05-09] MEDS: BUDESONIDE 0.5MG/2ML NEB HHN SCH (15:53)
[2019-05-09] MEDS: KETOROLAC 15MG/ML VIAL IV PRN (21:03)
[2019-05-09] MEDS: GABAPENTIN 300MG CAPSULE PO SCH (21:03)
[2019-05-09] MEDS: ATORVASTATIN CALCIUM 20MG TABLET PO SCH (21:03)
[2019-05-09 21:58] LABS: HEMATOCRIT 30.1 % (36.0-48.0); HEMOGLOBIN 9.8 g/dL (12.0-16.0)
[2019-05-10] VITALS: BP 106/44
[2019-05-10] MEDS: VANCOMYCIN 1 G PREMIX 200 ML IV SCH (00:28)
[2019-05-10] MEDS: DIPHENHYDRAMINE 50MG/ML VIAL IV PRN (00:36)
[2019-05-10] MEDS: IPRATROPIUM/ALBUTEROL 0.5-3(2.5)MG/3ML NEB NEB SCH ×2 (01:31→09:20)
[2019-05-10 04:00] VITALS: BP 120/65
[2019-05-10] MEDS: RANOLAZINE 500 MG TAB.SR.12H PO SCH (05:51)
[2019-05-10 07:03] LABS: BASOPHILS % 0.5 % (0.0-2.0); EOSINOPHILS % 2.7 % (0.0-5.0); HEMATOCRIT. 30.6 % (36.0-48.0); HEMOGLOBIN. 9.9 g/dL (12.0-16.0); LYMPHOCYTES % 12.8 % (20.0-50.0); MEAN CORPUSCULAR HEMOGLOBIN 24.2 pg (28.0-32.0); MEAN CORPUSCULAR VOLUME 75.2 fL (81.0-99.0); MONOCYTES % 10.9 % (2.0-8.0); NEUTROPHILS % 73.1 % (40.0-76.0); PLATELET 165 x1000/uL (130-400); RED BLOOD CELL COUNT 4.07 mill/uL (4.2-5.4); RED CELL DISTRIBUTION WIDTH 19.3 % (11.6-14.6)
[2019-05-10 07:14] LABS: CHLORIDE 109 mEq/L (98-107)
[2019-05-10 08:00] VITALS: BP 127/56
[2019-05-10] MEDS: MEMANTINE HCL 10MG TABLET PO SCH (08:06)
[2019-05-10] MEDS: SACUBITRIL/VALSARTAN 49MG/51MG TABLET PO SCH (08:06)
[2019-05-10] MEDS: DOCUSATE SODIUM 100MG CAPSULE PO SCH (08:06)
[2019-05-10] MEDS: FOLIC ACID 1MG TABLET PO SCH (08:07)
[2019-05-10] MEDS: ASCORBIC ACID 500 MG TABLET PO SCH (08:07)
[2019-05-10] MEDS: ALLOPURINOL 100 MG TABLET PO SCH ×2 (08:07→18:04)
[2019-05-10] MEDS: PANTOPRAZOLE 40MG DR TABLET PO SCH (08:07)
[2019-05-10] MEDS ORDERED: MAGNESIUM HYDROXIDE 400MG/5ML 30ML UDC PO PRN (09:00)
[2019-05-10] MEDS: BUDESONIDE 0.5MG/2ML NEB HHN SCH (09:05)
[2019-05-10 12:00] VITALS: BP 132/64
[2019-05-10 16:00] VITALS: BP 119/52
[2019-05-10] MEDS ORDERED: LACTULOSE 20G/30ML UDC PO NR (16:00)
[2019-05-10] MEDS ORDERED: LACT10SO MT (16:02)
[2019-05-10] MEDS: KETOROLAC 15MG/ML VIAL IV PRN (16:26)
[2019-05-10 17:13] VITALS: BP 119/52
== END 2019-05-10 18:56 | disposition home or self-care (01) | DRG 871 ==
LOC: ER 22:03 → 7WST 05-07 01:37 → ENRESERV 05-07 08:11
PROVIDERS: ADMIT Internal Medicine; ATTEND Internal Medicine
PROC: 30233N1 Transfusion of Nonautologous Red Blood Cells into Peripheral Vein, Percutaneous Approach (ICD-10-PCS; principal; 2019-05-09)
DX: A41.9 Sepsis, unspecified organism (principal); I50.43 Acute on chronic combined systolic (congestive) and diastolic (congestive) heart failure; N17.0 Acute kidney failure with tubular necrosis; I13.0 Hypertensive heart and chronic kidney disease with heart failure and stage 1 through stage 4 chronic kidney disease, or unspecified chronic kidney disease; J44.1 Chronic obstructive pulmonary disease with (acute) exacerbation; E87.1 Hypo-osmolality and hyponatremia; I38 Endocarditis, valve unspecified; J84.9 Interstitial pulmonary disease, unspecified; N20.0 Calculus of kidney; D50.9 Iron deficiency anemia, unspecified; I27.20 Pulmonary hypertension, unspecified; M19.90 Unspecified osteoarthritis, unspecified site; E78.5 Hyperlipidemia, unspecified; F41.9 Anxiety disorder, unspecified; K59.09 Other constipation; N18.9 Chronic kidney disease, unspecified; K29.50 Unspecified chronic gastritis without bleeding; D72.829 Elevated white blood cell count, unspecified; N81.10 Cystocele, unspecified; I49.9 Cardiac arrhythmia, unspecified; R33.9 Retention of urine, unspecified; K75.3 Granulomatous hepatitis, not elsewhere classified; B95.8 Unspecified staphylococcus as the cause of diseases classified elsewhere; K57.30 Diverticulosis of large intestine without perforation or abscess without bleeding; Z88.0 Allergy status to penicillin; Z88.6 Allergy status to analgesic agent; Z99.81 Dependence on supplemental oxygen; Z79.899 Other long term (current) drug therapy; Z90.49 Acquired absence of other specified parts of digestive tract; Z95.0 Presence of cardiac pacemaker; Z88.1 Allergy status to other antibiotic agents
CPT/HCPCS: 36415; 71045; 74018; 74176; 80048; 80053; 80202; 81003; 82270; 82607; 82728; 82746; 83540; 83550; 83880; 84484; 85014; 85018; 85025; 85044; 86850; 86900; 86920; 93005; 94640; 99285; J1200; J1885; J1956; J2270; J2405; J3370; J7030; J7060; J7620; J7626; P9016; A4315

== ENCOUNTER 2019-09-20 14:11 | Inpatient (IN) | payer OTHER ==
[~2019-09-20] VITALS: Ht 167.6 cm; Wt 79.5 kg
[~2019-09-20 14:11] MED LIST changes: -FURO80TA87 PO; +GABA-531 PO; +LACT10SO MT
[2019-09-20] MEDS ORDERED: METHYLPREDNISOLONE SOD SUCC 125 MG/2 ML VIAL IV STA (14:22)
[2019-09-20] MEDS ORDERED: ALBUTEROL (0.083%) 2.5MG/3ML NEB HHN STA (14:22)
[2019-09-20] MEDS ORDERED: MAGNESIUM 2 G PREMIX 50 ML IV STA (14:22)
[2019-09-20] MEDS ORDERED: IPRATROPIUM BROMIDE (0.02%) 0.5MG/2.5ML NEB HHN STA (14:22)
[2019-09-20] MEDS ORDERED: FUROSEMIDE 40MG/4ML VIAL IVP ONE (14:30)
[2019-09-20 14:53] LABS: HEMATOCRIT. 31.1 % (36.0-48.0); HEMOGLOBIN. 9.8 g/dL (12.0-16.0); MEAN CORPUSCULAR HEMOGLOBIN 25.6 pg (28.0-32.0); MEAN CORPUSCULAR VOLUME 81.1 fL (81.0-99.0); MEAN PLATELET VOLUME 7.8 fl (7.4-10.4); PLATELET 272 x1000/uL (130-400); RED BLOOD CELL COUNT 3.83 mill/uL (4.2-5.4); RED CELL DISTRIBUTION WIDTH 15.7 % (11.6-14.6)
[2019-09-20 14:59] LABS: CHLORIDE 104 mEq/L (98-107)
[2019-09-20 15:04] LABS: PROTHROMBIN TIME 11.2 sec (9.6-11.0)
[2019-09-20 16:08] LABS: NUCLEATED RED BLOOD CELLS 1 /100 WBC; PLATELET ESTIMATE NORMAL
[2019-09-20] MEDS ORDERED: DOCUSATE SODIUM 100MG CAPSULE PO PRN (16:45)
[2019-09-20] MEDS ORDERED: ONDANSETRON HCL 4MG/2ML INJ IV PRN (16:45)
[2019-09-20] MEDS ORDERED: LORAZEPAM 0.5MG TABLET PO PRN (16:45)
[2019-09-20] MEDS ORDERED: DIPHENHYDRAMINE 50MG/ML VIAL IV PRN (16:45)
[2019-09-20] MEDS ORDERED: GUAIFENESIN 200MG/10ML SUGAR FREE UDC PO PRN (16:45)
[2019-09-20] MEDS ORDERED: NA PHOS,M-B/NA PHOS,DI-BA ENEMA 118ML PR PRN (16:45)
[2019-09-20] MEDS ORDERED: ACETAMINOPHEN 650MG SUPP PR PRN (16:45)
[2019-09-20] MEDS ORDERED: MAGNESIUM/ALUMINUM HYDROXIDE/SIMETHICONE 30ML UDC PO PRN (16:45)
[2019-09-20] MEDS ORDERED: IPRATROPIUM/ALBUTEROL 0.5-3(2.5)MG/3ML NEB NEB PRN (16:45)
[2019-09-20] MEDS ORDERED: CLONIDINE 0.1MG TABLET PO PRN (16:45)
[2019-09-20] MEDS ORDERED: PHENYLEPHRINE 10 MG in DEXT 5% WATER 249 ML IV PRN (17:00)
[2019-09-20 17:07] LABS: BG BASE EXCESS 4.2 mmol/L (-2.0-2.0); BG BILEVEL POS AIRWAY PRESSURE 15/5; BG CARBOXYHEMOGLOBIN 0.4 % (0.5-1.5); BG DEOXYHEMOGLOBIN 1.2 % (0.0-5.0); BG HCO3 ACT 29.2 mmol/L (22.0-26.0); BG METHEMOGLOBIN 0.2 % (0.0-1.5); BG OXYGEN SATURATION 98.8 % (92.0-98.5); BG OXYHEMOGLOBIN 98.2 % (94.0-97.0); BG PCO2 45.8 mmHg (35.0-45.0); BG PH 7.422 (7.350-7.450); BG PO2 145.8 mmHg (75.0-100.0); BG SAMPLE SITE RIGHT RADIAL; BG TOTAL HEMOGLOBIN 10.4 g/dL (12.0-18.0); BG VENT MODE MASK - BIPAP; BG VENT RATE 12 set
[2019-09-20] MEDS: FUROSEMIDE 40MG/4ML VIAL IVP SCH (17:30)
[2019-09-20 18:00] VITALS: BP 138/70
[2019-09-20] MEDS ORDERED: LEVOFLOXACIN 500MG PREMIX 100 ML IV NR (18:00)
[2019-09-20 18:04] VITALS: BP 138/70
[2019-09-20] MEDS: METHYLPREDNISOLONE SOD SUCC 40 MG/ML VIAL IV SCH (18:24)
[2019-09-20 19:11] VITALS: BP 129/55
[2019-09-20 20:00] VITALS: BP 114/66
[2019-09-20] MEDS: IPRATROPIUM/ALBUTEROL 0.5-3(2.5)MG/3ML NEB NEB SCH (20:12)
[2019-09-20] MEDS: ATORVASTATIN CALCIUM 20MG TABLET PO SCH (21:16)
[2019-09-20] MEDS: FAMOTIDINE 20MG TABLET PO SCH (21:17)
[2019-09-20] MEDS: DILTIAZEM HCL 30MG TABLET PO SCH (21:20)
[2019-09-20] MEDS: GABAPENTIN 300MG CAPSULE PO SCH (21:21)
[2019-09-20] MEDS: MIRTAZAPINE 15MG TABLET PO PRN (21:21)
[2019-09-20 22:00] VITALS: BP 130/66
[2019-09-20 23:54] LABS: CREATINE KINASE 52 IU/L (26-192)
[2019-09-20 23:55] LABS: CREATINE KINASE MB FRACTION 1.5 ng/mL (0.5-3.6)
[2019-09-21] VITALS (13 sets, daily range): BP systolic 99–152; BP diastolic 23–68
[2019-09-21] MEDS: IPRATROPIUM/ALBUTEROL 0.5-3(2.5)MG/3ML NEB NEB SCH ×4 (01:45→20:45)
[2019-09-21] MEDS: METHYLPREDNISOLONE SOD SUCC 40 MG/ML VIAL IV SCH ×3 (02:24→16:55)
[2019-09-21 06:29] LABS: CHLORIDE 105 mEq/L (98-107)
[2019-09-21 06:40] LABS: CREATINE KINASE MB FRACTION 1.1 ng/mL (0.5-3.6); LDL CHOLESTEROL 76 mg/dL (5-100)
[2019-09-21 06:41] LABS: CREATINE KINASE 38 IU/L (26-192)
[2019-09-21 06:42] LABS: HDL CHOLESTEROL 83 mg/dL (40-59); T4 FREE 0.94 ng/dL (0.76-1.46)
[2019-09-21 06:47] LABS: HEMATOCRIT. 28.7 % (36.0-48.0); HEMOGLOBIN. 9.2 g/dL (12.0-16.0); MEAN CORPUSCULAR HEMOGLOBIN 26.1 pg (28.0-32.0); MEAN PLATELET VOLUME 7.9 fl (7.4-10.4); PLATELET 254 x1000/uL (130-400); RED BLOOD CELL COUNT 3.55 mill/uL (4.2-5.4); RED CELL DISTRIBUTION WIDTH 15.8 % (11.6-14.6)
[2019-09-21] MEDS: FUROSEMIDE 40MG/4ML VIAL IVP SCH (09:49)
[2019-09-21] MEDS: ALLOPURINOL 100 MG TABLET PO SCH ×2 (09:49→16:56)
[2019-09-21] MEDS: DILTIAZEM HCL 30MG TABLET PO SCH (09:49)
[2019-09-21] MEDS: MEMANTINE HCL 10MG TABLET PO SCH (09:52)
[2019-09-21] MEDS: DOCUSATE SODIUM 100MG CAPSULE PO SCH (09:52)
[2019-09-21] MEDS: ASCORBIC ACID 500 MG TABLET PO SCH (09:52)
[2019-09-21] MEDS: ASPIRIN 81MG EC TABLET PO SCH (09:52)
[2019-09-21] MEDS: FOLIC ACID 1MG TABLET PO SCH (09:52)
[2019-09-21] MEDS: ENOXAPARIN 40MG/0.4ML SYR SUBCUT SCH (09:53)
[2019-09-21 11:19] LABS: PLATELET ESTIMATE NORMAL
[2019-09-21] MEDS ORDERED: GABAPENTIN 100MG CAPSULE PO SCH (12:00)
[2019-09-21 12:09] LABS: CLARITY URINE CLEAR (CLEAR); COLOR URINE YELLOW (YELLOW); KETONES URINE NEGATIVE (NEGATIVE); LEUKOCYTE ESTERASE URINE NEGATIVE (NEGATIVE); NITRITE URINE NEGATIVE (NEGATIVE); OCCULT BLOOD URINE NEGATIVE (NEGATIVE); PH URINE 5.5 (4.5-8.0); PROTEIN URINE NEGATIVE (NEGATIVE); SPECIFIC GRAVITY URINE 1.024 (1.005-1.030); UROBILINOGEN URINE 0.2 E.U./dL (0.2-1.0)
[2019-09-21] MEDS ORDERED: DEXTROSE 50% WATER 50ML SYRINGE IV PRN (13:30)
[2019-09-21] MEDS: BLOOD SUGAR DIAGNOSTIC STRIP TEST SCH ×2 (16:22→21:43)
[2019-09-21] MEDS: ACETAMINOPHEN 325MG TABLET PO PRN (16:56)
[2019-09-21] MEDS: INSULIN LISPRO 100 UNITS/ML SUBCUT SCH ×2 (16:56→21:00)
[2019-09-21] MEDS ORDERED: LEVOFLOXACIN 250MG PREMIX 50 ML IV SCH (18:00)
[2019-09-21] MEDS: FAMOTIDINE 20MG TABLET PO SCH (21:49)
[2019-09-21] MEDS: MIRTAZAPINE 15MG TABLET PO PRN (21:49)
[2019-09-21] MEDS: GABAPENTIN 300MG CAPSULE PO SCH (21:49)
[2019-09-21] MEDS: LOSARTAN POTASSIUM 25 MG TABLET PO SCH (21:49)
[2019-09-21] MEDS: ATORVASTATIN CALCIUM 20MG TABLET PO SCH (21:49)
[2019-09-22] VITALS (13 sets, daily range): BP systolic 114–147; BP diastolic 54–97
[2019-09-22] MEDS: METHYLPREDNISOLONE SOD SUCC 40 MG/ML VIAL IV SCH ×3 (01:22→17:48)
[2019-09-22] MEDS: IPRATROPIUM/ALBUTEROL 0.5-3(2.5)MG/3ML NEB NEB SCH ×3 (01:45→13:41)
[2019-09-22] MEDS: BLOOD SUGAR DIAGNOSTIC STRIP TEST SCH ×4 (05:34→20:08)
[2019-09-22] MEDS: INSULIN LISPRO 100 UNITS/ML SUBCUT SCH ×4 (07:20→20:42)
[2019-09-22] MEDS: ALLOPURINOL 100 MG TABLET PO SCH ×2 (09:13→17:48)
[2019-09-22] MEDS: LOSARTAN POTASSIUM 25 MG TABLET PO SCH (09:13)
[2019-09-22] MEDS: ENOXAPARIN 40MG/0.4ML SYR SUBCUT SCH (09:13)
[2019-09-22] MEDS: ACETAMINOPHEN 325MG TABLET PO PRN (09:13)
[2019-09-22] MEDS: ASPIRIN 81MG EC TABLET PO SCH (09:13)
[2019-09-22] MEDS: ASCORBIC ACID 500 MG TABLET PO SCH (09:13)
[2019-09-22] MEDS: FUROSEMIDE 40MG/4ML VIAL IVP SCH (09:13)
[2019-09-22] MEDS: MEMANTINE HCL 10MG TABLET PO SCH (09:13)
[2019-09-22] MEDS: FOLIC ACID 1MG TABLET PO SCH (09:14)
[2019-09-22] MEDS: DOCUSATE SODIUM 100MG CAPSULE PO SCH (09:14)
[2019-09-22] MEDS: HYDROCODONE/ACETAMINOPHEN 5/325MG TABLET PO PRN ×2 (12:44→20:08)
[2019-09-22] MEDS: DILTIAZEM HCL 120MG CAPSULE CD 24HR PO SCH (12:44)
[2019-09-22] MEDS ORDERED: MORPHINE SULFATE 2 MG/ML CPJ (NOT FOR IM USE) IV PRN (12:45)
[2019-09-22 13:15] LABS: HEMATOCRIT 29.8 % (36.0-48.0); HEMOGLOBIN 9.4 g/dL (12.0-16.0); MEAN CORPUSCULAR HEMOGLOBIN 25.6 pg (28.0-32.0); MEAN CORPUSCULAR VOLUME 81.1 fL (81.0-99.0); PLATELET 262 x1000/uL (130-400); RED BLOOD CELL COUNT 3.67 mill/uL (4.2-5.4); RED CELL DISTRIBUTION WIDTH 15.9 % (11.6-14.6)
[2019-09-22 13:25] LABS: CHLORIDE 102 mEq/L (98-107)
[2019-09-22] MEDS: GABAPENTIN 300MG CAPSULE PO SCH (20:07)
[2019-09-22] MEDS: FAMOTIDINE 20MG TABLET PO SCH (20:07)
[2019-09-22] MEDS: ATORVASTATIN CALCIUM 20MG TABLET PO SCH (20:08)
[2019-09-23] VITALS (9 sets, daily range): BP systolic 111–154; BP diastolic 59–81
[2019-09-23] MEDS: IPRATROPIUM/ALBUTEROL 0.5-3(2.5)MG/3ML NEB NEB SCH ×3 (01:14→14:38)
[2019-09-23] MEDS: HYDROCODONE/ACETAMINOPHEN 5/325MG TABLET PO PRN (01:43)
[2019-09-23] MEDS: MIRTAZAPINE 15MG TABLET PO PRN (01:46)
[2019-09-23 05:10] LABS: CHLORIDE 102 mEq/L (98-107); HEMATOCRIT 25.6 % (36.0-48.0); HEMOGLOBIN 8.3 g/dL (12.0-16.0); MEAN CORPUSCULAR HEMOGLOBIN 26.3 pg (28.0-32.0); MEAN CORPUSCULAR VOLUME 80.4 fL (81.0-99.0); PLATELET 236 x1000/uL (130-400); RED BLOOD CELL COUNT 3.18 mill/uL (4.2-5.4); RED CELL DISTRIBUTION WIDTH 15.7 % (11.6-14.6)
[2019-09-23] MEDS: BLOOD SUGAR DIAGNOSTIC STRIP TEST SCH ×2 (05:54→12:10)
[2019-09-23] MEDS: METHYLPREDNISOLONE SOD SUCC 40 MG/ML VIAL IV SCH (06:07)
[2019-09-23] MEDS: INSULIN LISPRO 100 UNITS/ML SUBCUT SCH ×2 (07:20→12:10)
[2019-09-23] MEDS: ENOXAPARIN 40MG/0.4ML SYR SUBCUT SCH (08:17)
[2019-09-23] MEDS: FUROSEMIDE 40MG/4ML VIAL IVP SCH (08:17)
[2019-09-23] MEDS: MEMANTINE HCL 10MG TABLET PO SCH (08:18)
[2019-09-23] MEDS: ASPIRIN 81MG EC TABLET PO SCH (08:18)
[2019-09-23] MEDS: ASCORBIC ACID 500 MG TABLET PO SCH (08:18)
[2019-09-23] MEDS: FOLIC ACID 1MG TABLET PO SCH (08:18)
[2019-09-23] MEDS: DOCUSATE SODIUM 100MG CAPSULE PO SCH (08:18)
[2019-09-23] MEDS: ALLOPURINOL 100 MG TABLET PO SCH (08:18)
[2019-09-23] MEDS: DILTIAZEM HCL 120MG CAPSULE CD 24HR PO SCH (08:19)
[2019-09-23] MEDS ORDERED: SACUBITRIL/VALSARTAN 24/26 TAB PO SCH (20:00)
[2019-09-23] MEDS ORDERED: NON FORMULARY PATIENT HOME MED PO SCH (20:00)
[2019-09-24] MEDS ORDERED: DILTIAZEM HCL 180MG CAPSULE CD 24HR PO SCH (09:00)
== END 2019-09-23 17:59 | disposition home or self-care (01) | DRG 291 ==
LOC: ER 14:11 → MICUSO 14:58 → EDBEDREQTM 15:00 → EDBEDREQ 15:00 → 3WST 17:59
PROVIDERS: ADMIT Internal Medicine; ATTEND Internal Medicine
PROC: 5A09357 Assistance with Respiratory Ventilation, Less than 24 Consecutive Hours, Continuous Positive Airway Pressure (ICD-10-PCS; principal; 2019-09-20)
DX: I13.0 Hypertensive heart and chronic kidney disease with heart failure and stage 1 through stage 4 chronic kidney disease, or unspecified chronic kidney disease (principal); J96.00 Acute respiratory failure, unspecified whether with hypoxia or hypercapnia; I50.43 Acute on chronic combined systolic (congestive) and diastolic (congestive) heart failure; J44.1 Chronic obstructive pulmonary disease with (acute) exacerbation; J84.9 Interstitial pulmonary disease, unspecified; I48.92 Unspecified atrial flutter; I42.0 Dilated cardiomyopathy; I27.20 Pulmonary hypertension, unspecified; R73.9 Hyperglycemia, unspecified; M19.90 Unspecified osteoarthritis, unspecified site; I48.0 Paroxysmal atrial fibrillation; E78.5 Hyperlipidemia, unspecified; N18.9 Chronic kidney disease, unspecified; K57.90 Diverticulosis of intestine, part unspecified, without perforation or abscess without bleeding; D72.829 Elevated white blood cell count, unspecified; F41.9 Anxiety disorder, unspecified; D64.9 Anemia, unspecified; Z95.810 Presence of automatic (implantable) cardiac defibrillator; Z99.81 Dependence on supplemental oxygen; Z88.0 Allergy status to penicillin; Z88.5 Allergy status to narcotic agent; Z88.1 Allergy status to other antibiotic agents; Z79.52 Long term (current) use of systemic steroids; Z79.899 Other long term (current) drug therapy; Z90.49 Acquired absence of other specified parts of digestive tract
CPT/HCPCS: 36415; 36600; 71045; 78582; 80048; 80053; 80061; 81003; 82375; 82550; 82553; 82805; 82962; 83036; 83605; 83735; 83880; 84145; 84439; 84443; 84484; 85025; 85027; 86850; 86900; 87070; 93005; 93306; 93970; 97116; 97162; 99291; A9558; J1650; J1815; J1940; J1956; J2920; J2930; J3475

== ENCOUNTER 2020-04-02 14:09 | Inpatient (IN) | payer OTHER ==
[~2020-04-02] VITALS: Ht 165.1 cm; Wt 76.2 kg
[2020-04-02] MEDS ORDERED: ALBUTEROL (0.083%) 2.5MG/3ML NEB HHN ONE (14:45)
[2020-04-02 15:12] LABS: HEMOGLOBIN. 10.6 g/dL (12.0-16.0); MEAN CORPUSCULAR HEMOGLOBIN 26.5 pg (28.0-32.0); MEAN CORPUSCULAR VOLUME 82.3 fL (81.0-99.0); MEAN PLATELET VOLUME 7.7 fl (7.4-10.4); PLATELET 204 x1000/uL (130-400); RED CELL DISTRIBUTION WIDTH 15.4 % (11.6-14.6)
[2020-04-02] MEDS ORDERED: NON FORMULARY PATIENT HOME MED XX SCH (15:15)
[2020-04-02 15:17] LABS: CHLORIDE 101 mEq/L (98-107)
[2020-04-02] MEDS ORDERED: PREDNISONE 20MG TABLET PO ONE (15:30)
[2020-04-02] MEDS: FUROSEMIDE 40MG/4ML VIAL IVP SCH ×2 (15:45→19:16)
[2020-04-02] MEDS ORDERED: HYDROCODONE/ACETAMINOPHEN 5/325MG TABLET PO PRN (16:30)
[2020-04-02] MEDS ORDERED: MIRTAZAPINE 15MG TABLET PO PRN (16:30)
[2020-04-02] MEDS ORDERED: ONDANSETRON HCL 4MG/2ML INJ IV PRN (16:30)
[2020-04-02] MEDS ORDERED: NA PHOS,M-B/NA PHOS,DI-BA ENEMA 118ML PR PRN (16:30)
[2020-04-02] MEDS ORDERED: CLONIDINE 0.1MG TABLET PO PRN (16:30)
[2020-04-02] MEDS ORDERED: IPRATROPIUM/ALBUTEROL 0.5-3(2.5)MG/3ML NEB NEB PRN (16:30)
[2020-04-02] MEDS ORDERED: DOCUSATE SODIUM 100MG CAPSULE PO PRN (16:30)
[2020-04-02] MEDS ORDERED: ACETAMINOPHEN 650MG SUPP PR PRN (16:30)
[2020-04-02] MEDS ORDERED: MAGNESIUM/ALUMINUM HYDROXIDE/SIMETHICONE 30ML UDC PO PRN (16:30)
[2020-04-02] MEDS ORDERED: GUAIFENESIN 200MG/10ML SUGAR FREE UDC PO PRN (16:30)
[2020-04-02 16:31] LABS: PLATELET ESTIMATE NORMAL
[2020-04-02] MEDS: SACUBITRIL/VALSARTAN 49MG/51MG TABLET PO SCH (16:46)
[2020-04-02] MEDS ORDERED: METHYLPREDNISOLONE 40MG/ML INJ IV SCH (17:00)
[2020-04-02] MEDS ORDERED: SACUBITRIL/VALSARTAN 49MG/51MG TABLET PO SCH (17:00)
[2020-04-02] MEDS: DILTIAZEM HCL 30MG TABLET PO SCH (17:00)
[2020-04-02] MEDS: METHYLPREDNISOLONE SOD SUCC 40 MG/ML VIAL IV SCH (19:16)
[2020-04-02] MEDS: PANTOPRAZOLE 40MG DR TABLET PO SCH (19:16)
[2020-04-02] MEDS: ALLOPURINOL 100 MG TABLET PO SCH (19:16)
[2020-04-02] MEDS: ATORVASTATIN CALCIUM 20MG TABLET PO SCH (21:29)
[2020-04-02] MEDS: CARVEDILOL 3.125 MG TABLET PO SCH (21:33)
[2020-04-02] MEDS: IPRATROPIUM/ALBUTEROL 0.5-3(2.5)MG/3ML NEB NEB SCH (22:47)
[2020-04-03] MEDS: IPRATROPIUM/ALBUTEROL 0.5-3(2.5)MG/3ML NEB NEB SCH ×3 (01:00→14:34)
[2020-04-03] MEDS: MORPHINE SULFATE 2 MG/ML CPJ (NOT FOR IM USE) IV PRN (01:52)
[2020-04-03] MEDS: METHYLPREDNISOLONE SOD SUCC 40 MG/ML VIAL IV SCH ×3 (02:42→18:05)
[2020-04-03 04:36] LABS: HEMATOCRIT. 30.7 % (36.0-48.0); MEAN CORPUSCULAR HEMOGLOBIN 26.5 pg (28.0-32.0); MEAN CORPUSCULAR VOLUME 81.5 fL (81.0-99.0); MEAN PLATELET VOLUME 7.5 fl (7.4-10.4); PLATELET 196 x1000/uL (130-400); RED BLOOD CELL COUNT 3.76 mill/uL (4.2-5.4); RED CELL DISTRIBUTION WIDTH 15.2 % (11.6-14.6)
[2020-04-03 04:44] LABS: CHLORIDE 99 mEq/L (98-107)
[2020-04-03 04:51] LABS: LDL CHOLESTEROL 79 mg/dL (5-100)
[2020-04-03 04:52] LABS: HDL CHOLESTEROL 95 mg/dL (40-59)
[2020-04-03 04:53] LABS: T4 FREE 1.03 ng/dL (0.76-1.46)
[2020-04-03] MEDS: DILTIAZEM HCL 30MG TABLET PO SCH (05:52)
[2020-04-03 07:32] LABS: CLARITY URINE CLEAR (CLEAR); COLOR URINE YELLOW (YELLOW); KETONES URINE NEGATIVE (NEGATIVE); LEUKOCYTE ESTERASE URINE NEGATIVE (NEGATIVE); NITRITE URINE NEGATIVE (NEGATIVE); OCCULT BLOOD URINE NEGATIVE (NEGATIVE); PROTEIN URINE NEGATIVE (NEGATIVE); SPECIFIC GRAVITY URINE 1.018 (1.005-1.030); UROBILINOGEN URINE 0.2 E.U./dL (0.2-1.0)
[2020-04-03] MEDS ORDERED: NON FORMULARY PATIENT HOME MED XX SCH (09:30)
[2020-04-03] MEDS: CARVEDILOL 3.125 MG TABLET PO SCH ×2 (10:55→21:00)
[2020-04-03] MEDS: DOCUSATE SODIUM 100MG CAPSULE PO SCH (10:55)
[2020-04-03] MEDS: SACUBITRIL/VALSARTAN 49MG/51MG TABLET PO SCH ×2 (10:56→21:36)
[2020-04-03] MEDS: PANTOPRAZOLE 40MG DR TABLET PO SCH (10:57)
[2020-04-03] MEDS: ASCORBIC ACID 500 MG TABLET PO SCH (10:57)
[2020-04-03] MEDS: FUROSEMIDE 40MG/4ML VIAL IVP SCH ×2 (10:59→18:04)
[2020-04-03] MEDS: ALLOPURINOL 100 MG TABLET PO SCH ×2 (12:25→18:04)
[2020-04-03] MEDS: MEMANTINE HCL 10MG TABLET PO SCH (12:25)
[2020-04-03] MEDS: FOLIC ACID 1MG TABLET PO SCH (12:25)
[2020-04-03] MEDS: GABAPENTIN 100MG CAPSULE PO SCH (12:26)
[2020-04-03 14:01] LABS: PLATELET ESTIMATE NORMAL
[2020-04-03] MEDS: ACETAMINOPHEN 325MG TABLET PO PRN ×2 (15:06→21:36)
[2020-04-03 15:08] LABS: BG BASE EXCESS 4.9 mmol/L (-2.0-2.0); BG CARBOXYHEMOGLOBIN 0.1 % (0.5-1.5); BG DEOXYHEMOGLOBIN 2.4 % (0.0-5.0); BG HCO3 ACT 29.1 mmol/L (22.0-26.0); BG METHEMOGLOBIN 0.3 % (0.0-1.5); BG OXYGEN SATURATION 97.6 % (92.0-98.5); BG OXYHEMOGLOBIN 97.2 % (94.0-97.0); BG PCO2 41.5 mmHg (35.0-45.0); BG PH 7.464 (7.350-7.450); BG PO2 101.3 mmHg (75.0-100.0); BG SAMPLE SITE RIGHT RADIAL; BG TOTAL HEMOGLOBIN 11.2 g/dL (12.0-18.0); BG VENT MODE NASAL CANNULA
[2020-04-03 18:00] VITALS: BP 108/58
[2020-04-03 18:27] VITALS: BP 108/58
[2020-04-03 19:39] LABS: INR 1.1; PROTHROMBIN TIME 11.9 sec (9.6-11.0)
[2020-04-03 20:00] VITALS: BP 114/53
[2020-04-03] MEDS: ATORVASTATIN CALCIUM 20MG TABLET PO SCH (21:36)
[2020-04-03] MEDS: LORAZEPAM 0.5MG TABLET PO PRN (21:36)
[2020-04-04] VITALS: BP 102/44
[2020-04-04 04:00] VITALS: BP 121/58
[2020-04-04] MEDS: METHYLPREDNISOLONE SOD SUCC 40 MG/ML VIAL IV SCH ×3 (04:30→18:14)
[2020-04-04 06:10] LABS: HEMATOCRIT. 32.5 % (36.0-48.0); HEMOGLOBIN. 10.2 g/dL (12.0-16.0); MEAN CORPUSCULAR HEMOGLOBIN 25.9 pg (28.0-32.0); MEAN CORPUSCULAR VOLUME 82.3 fL (81.0-99.0); PLATELET 208 x1000/uL (130-400); RED BLOOD CELL COUNT 3.95 mill/uL (4.2-5.4); RED CELL DISTRIBUTION WIDTH 15.2 % (11.6-14.6)
[2020-04-04 06:16] LABS: CHLORIDE 99 mEq/L (98-107)
[2020-04-04 08:00] VITALS: BP 112/56
[2020-04-04] MEDS: IPRATROPIUM/ALBUTEROL 0.5-3(2.5)MG/3ML NEB NEB SCH (08:50)
[2020-04-04] MEDS ORDERED: POTASSIUM CHLORIDE 20MEQ TABLET SR PO SCH (09:00)
[2020-04-04 09:10] LABS: PLATELET ESTIMATE NORMAL
[2020-04-04] MEDS: FUROSEMIDE 40MG/4ML VIAL IVP SCH ×2 (09:49→17:24)
[2020-04-04] MEDS: DOCUSATE SODIUM 100MG CAPSULE PO SCH (09:50)
[2020-04-04] MEDS: MEMANTINE HCL 10MG TABLET PO SCH (09:50)
[2020-04-04] MEDS: PANTOPRAZOLE 40MG DR TABLET PO SCH (09:51)
[2020-04-04] MEDS: ALLOPURINOL 100 MG TABLET PO SCH ×2 (09:51→17:24)
[2020-04-04] MEDS: ASCORBIC ACID 500 MG TABLET PO SCH (09:51)
[2020-04-04] MEDS: FOLIC ACID 1MG TABLET PO SCH (09:51)
[2020-04-04] MEDS: SACUBITRIL/VALSARTAN 49MG/51MG TABLET PO SCH ×2 (09:52→20:17)
[2020-04-04] MEDS: POTASSIUM CHLORIDE 20MEQ TABLET SR PO SCH (09:56)
[2020-04-04] MEDS: ACETAMINOPHEN 325MG TABLET PO PRN (09:56)
[2020-04-04] MEDS: MORPHINE SULFATE 2 MG/ML CPJ (NOT FOR IM USE) IV PRN ×3 (11:13→21:31)
[2020-04-04 12:00] VITALS: BP 109/57
[2020-04-04 16:00] VITALS: BP 103/57
[2020-04-04] MEDS: ENOXAPARIN 40MG/0.4ML SYR SUBCUT SCH (18:17)
[2020-04-04] MEDS: ATORVASTATIN CALCIUM 20MG TABLET PO SCH (20:17)
[2020-04-04] MEDS: LORAZEPAM 0.5MG TABLET PO PRN (20:17)
[2020-04-04] MEDS: DIPHENHYDRAMINE 50MG/ML VIAL IV PRN (21:59)
[2020-04-05] MEDS: IPRATROPIUM/ALBUTEROL 0.5-3(2.5)MG/3ML NEB NEB SCH ×2 (01:40→14:15)
[2020-04-05] MEDS: METHYLPREDNISOLONE SOD SUCC 40 MG/ML VIAL IV SCH ×3 (02:47→18:22)
[2020-04-05] MEDS: MORPHINE SULFATE 2 MG/ML CPJ (NOT FOR IM USE) IV PRN ×3 (06:48→18:23)
[2020-04-05 07:43] LABS: HEMATOCRIT. 32.7 % (36.0-48.0); HEMOGLOBIN. 10.4 g/dL (12.0-16.0); MEAN CORPUSCULAR HEMOGLOBIN 26.1 pg (28.0-32.0); MEAN CORPUSCULAR VOLUME 81.7 fL (81.0-99.0); MEAN PLATELET VOLUME 8.2 fl (7.4-10.4); PLATELET 208 x1000/uL (130-400); RED CELL DISTRIBUTION WIDTH 15.2 % (11.6-14.6)
[2020-04-05 08:00] VITALS: BP 117/65
[2020-04-05 08:13] LABS: CHLORIDE 99 mEq/L (98-107)
[2020-04-05] MEDS: FUROSEMIDE 40MG/4ML VIAL IVP SCH ×2 (08:38→17:08)
[2020-04-05] MEDS: FAMOTIDINE 20MG TABLET PO SCH (08:39)
[2020-04-05] MEDS: ALLOPURINOL 100 MG TABLET PO SCH ×2 (08:39→17:08)
[2020-04-05] MEDS: MEMANTINE HCL 10MG TABLET PO SCH (08:39)
[2020-04-05] MEDS: POTASSIUM CHLORIDE 20MEQ TABLET SR PO SCH (08:41)
[2020-04-05] MEDS: DOCUSATE SODIUM 100MG CAPSULE PO SCH (08:41)
[2020-04-05] MEDS: FOLIC ACID 1MG TABLET PO SCH (08:41)
[2020-04-05] MEDS: ASCORBIC ACID 500 MG TABLET PO SCH (08:41)
[2020-04-05] MEDS: SACUBITRIL/VALSARTAN 49MG/51MG TABLET PO SCH ×2 (08:42→20:20)
[2020-04-05] MEDS: DIPHENHYDRAMINE 50MG/ML VIAL IV PRN ×2 (09:29→20:55)
[2020-04-05 12:00] VITALS: BP 132/65
[2020-04-05 16:00] VITALS: BP 114/61
[2020-04-05 16:52] LABS: PLATELET ESTIMATE NORMAL
[2020-04-05] MEDS ORDERED: P20 PO (16:58)
[2020-04-05] MEDS: ENOXAPARIN 40MG/0.4ML SYR SUBCUT SCH (17:08)
[2020-04-05 20:00] VITALS: BP 132/64
[2020-04-05] MEDS: ATORVASTATIN CALCIUM 20MG TABLET PO SCH (20:20)
[2020-04-06] VITALS (7 sets, daily range): BP systolic 101–144; BP diastolic 49–115
[2020-04-06] MEDS: DIPHENHYDRAMINE 50MG/ML VIAL IV PRN (01:20)
[2020-04-06] MEDS: METHYLPREDNISOLONE SOD SUCC 40 MG/ML VIAL IV SCH ×3 (02:41→18:00)
[2020-04-06] MEDS: SACUBITRIL/VALSARTAN 49MG/51MG TABLET PO SCH ×2 (09:03→20:11)
[2020-04-06] MEDS: FAMOTIDINE 20MG TABLET PO SCH (09:03)
[2020-04-06] MEDS: DOCUSATE SODIUM 100MG CAPSULE PO SCH (09:03)
[2020-04-06] MEDS: MEMANTINE HCL 10MG TABLET PO SCH (09:03)
[2020-04-06] MEDS: FOLIC ACID 1MG TABLET PO SCH (09:04)
[2020-04-06] MEDS: ASCORBIC ACID 500 MG TABLET PO SCH (09:04)
[2020-04-06] MEDS: ALLOPURINOL 100 MG TABLET PO SCH ×2 (09:04→16:53)
[2020-04-06] MEDS: POTASSIUM CHLORIDE 20MEQ TABLET SR PO SCH (09:04)
[2020-04-06] MEDS: FUROSEMIDE 40MG/4ML VIAL IVP SCH ×2 (09:22→17:58)
[2020-04-06] MEDS: IPRATROPIUM/ALBUTEROL 0.5-3(2.5)MG/3ML NEB NEB SCH ×3 (09:48→21:05)
[2020-04-06] MEDS ORDERED: METOLAZONE 2.5MG TABLET PO NR (10:45)
[2020-04-06] MEDS: DILTIAZEM HCL 30MG TABLET PO SCH ×3 (11:11→21:29)
[2020-04-06] MEDS: ACETAMINOPHEN 325MG TABLET PO PRN (11:54)
[2020-04-06] MEDS: GABAPENTIN 100MG CAPSULE PO SCH (12:58)
[2020-04-06] MEDS: LORAZEPAM 0.5MG TABLET PO PRN (16:53)
[2020-04-06] MEDS: ENOXAPARIN 40MG/0.4ML SYR SUBCUT SCH (17:58)
[2020-04-06] MEDS: ATORVASTATIN CALCIUM 20MG TABLET PO SCH (20:10)
[2020-04-07] VITALS: BP 109/52
[2020-04-07] MEDS: DIPHENHYDRAMINE 50MG/ML VIAL IV PRN (01:36)
[2020-04-07] MEDS: IPRATROPIUM/ALBUTEROL 0.5-3(2.5)MG/3ML NEB NEB SCH ×3 (02:36→15:07)
[2020-04-07] MEDS: METHYLPREDNISOLONE SOD SUCC 40 MG/ML VIAL IV SCH ×2 (02:53→10:55)
[2020-04-07 04:30] VITALS: BP 108/52
[2020-04-07] MEDS: DILTIAZEM HCL 30MG TABLET PO SCH (05:48)
[2020-04-07 08:00] VITALS: BP 115/49
[2020-04-07] MEDS ORDERED: ALPRAZOLAM 0.25 MG TABLET PO SCH (09:00)
[2020-04-07] MEDS: POTASSIUM CHLORIDE 20MEQ TABLET SR PO SCH (09:15)
[2020-04-07] MEDS: DOCUSATE SODIUM 100MG CAPSULE PO SCH (09:15)
[2020-04-07] MEDS: SACUBITRIL/VALSARTAN 49MG/51MG TABLET PO SCH (09:15)
[2020-04-07] MEDS: ASCORBIC ACID 500 MG TABLET PO SCH (09:16)
[2020-04-07] MEDS: MEMANTINE HCL 10MG TABLET PO SCH (09:16)
[2020-04-07] MEDS: ALLOPURINOL 100 MG TABLET PO SCH (09:16)
[2020-04-07] MEDS: FAMOTIDINE 20MG TABLET PO SCH (09:16)
[2020-04-07] MEDS: FOLIC ACID 1MG TABLET PO SCH (09:17)
[2020-04-07] MEDS: FUROSEMIDE 40MG/4ML VIAL IVP SCH (10:55)
[2020-04-07] MEDS ORDERED: DILTIAZEM HCL 60MG TABLET PO SCH (12:00)
[2020-04-07 12:29] LABS: HEMATOCRIT. 37.2 % (36.0-48.0); HEMOGLOBIN. 11.8 g/dL (12.0-16.0); MEAN CORPUSCULAR VOLUME 81.6 fL (81.0-99.0); PLATELET 213 x1000/uL (130-400); RED BLOOD CELL COUNT 4.56 mill/uL (4.2-5.4); RED CELL DISTRIBUTION WIDTH 15.3 % (11.6-14.6)
[2020-04-07 12:41] LABS: CHLORIDE 93 mEq/L (98-107)
[2020-04-07 16:18] LABS: PLATELET ESTIMATE NORMAL
[2020-04-07] MEDS ORDERED: DILT180C66 MT (18:32)
[2020-04-09] MEDS ORDERED: DILT60TA41 MT (18:11)
[2020-04-09] MEDS ORDERED: P20 MT (18:14)
== END 2020-04-07 17:04 | disposition home or self-care (01) | DRG 291 ==
LOC: ER 14:09 → MICUSO 16:30 → 6WST 04-03 16:43
PROVIDERS: ADMIT Internal Medicine; ATTEND Internal Medicine
DX: I13.0 Hypertensive heart and chronic kidney disease with heart failure and stage 1 through stage 4 chronic kidney disease, or unspecified chronic kidney disease (principal); I50.43 Acute on chronic combined systolic (congestive) and diastolic (congestive) heart failure; J44.1 Chronic obstructive pulmonary disease with (acute) exacerbation; I48.92 Unspecified atrial flutter; I47.1 Supraventricular tachycardia; J84.9 Interstitial pulmonary disease, unspecified; I42.0 Dilated cardiomyopathy; E78.5 Hyperlipidemia, unspecified; I27.20 Pulmonary hypertension, unspecified; M19.90 Unspecified osteoarthritis, unspecified site; N18.9 Chronic kidney disease, unspecified; K57.90 Diverticulosis of intestine, part unspecified, without perforation or abscess without bleeding; F41.9 Anxiety disorder, unspecified; D64.9 Anemia, unspecified; I48.0 Paroxysmal atrial fibrillation; Z20.828 Contact with and (suspected) exposure to other viral communicable diseases; Z79.899 Other long term (current) drug therapy; Z95.810 Presence of automatic (implantable) cardiac defibrillator; Z88.1 Allergy status to other antibiotic agents; Z88.5 Allergy status to narcotic agent; R06.03 Acute respiratory distress
CPT/HCPCS: 36415; 36600; 71045; 78582; 80048; 80053; 80061; 81003; 82375; 82805; 83735; 83880; 84439; 84443; 84484; 85025; 87426; 87804; 93005; 93306; 93970; 94640; 96374; 97110; 97116; 97162; 99285; A9558; J1200; J1650; J1940; J2270; J2920; J7512